=== PATIENT | male | born 1965 | race Caucasian/White ===

== ENCOUNTER 2021-04-08 08:01 | Outpatient (CLI) | payer BC, SELFPAY ==
--- NOTE | ~2021-04-08 | US_ITS ---
EXAMINATION: US abdomen complete DATE: 04/08/2021 09:24 INDICATION: Chronic idiopathic thrombocytopenic purpura TECHNIQUE: Multiple grayscale and Doppler ultrasound images of the abdomen were obtained. COMPARISON: 03/04/2010 FINDINGS: Bowel gas obscures visualization of the pancreas. The visualized portions of the pancreas a re unremarkable. The liver is normal with normal echogenicity and echotexture. No surface nodularity. Normal hepatopetal flow in the main portal vein. The gallbladder is normal with no abnormal wall thi ckening, pericholecystic fluid or stones. The normal common bile duct measures 5 mm. There was no son ographic Peck sign. The visualized portions of the aorta and inferior vena cava are normal. The right kidney measures 11.4 x 4.5 x 6.9 cm. The left kidney measures 11.8 x 6.2 x 6.2 cm. The kidn eys demonstrate normal parenchymal echogenicity. There is no hydronephrosis. The mildly enlarged sple en measures 14.1 cm. IMPRESSION: 1. Mild splenomegaly. Reviewed, dictated and finalized at location B. IMPRESSION: 1. Mild splenomegaly.
== END 2021-04-08 08:02 | disposition home or self-care (01) ==
LOC: ANHIMG 08:05
PROVIDERS: PCP Family Medicine; Visit Provider Internal Medicine Hematology & Oncology
DX: D69.3 Immune thrombocytopenic purpura (principal); R16.1 Splenomegaly, not elsewhere classified
CPT/HCPCS: 76700

== ENCOUNTER 2021-05-18 15:59 | Outpatient (CLI) | payer BC, SELFPAY ==
[2021-05-18 16:11] LABS: Hematocrit 43.6 % (42.0-52.0); Hemoglobin 15.3 g/dL (14.0-18.0); Mean Corpuscular HGB Conc 35.1 g/dl (32-36); Mean Corpuscular Hemoglobin 31.7 pg (26-34); Mean Corpuscular Volume 90.5 fl (80-100); Mean Platelet Volume 13.3 fl (7.4-10.4); Platelet Count Result 106 k/mm3 (150-375); Red Blood Count 4.82 M/mm3 (4.6-6.20); White Blood Count 7.1 K/mm3 (4.5-10.0)
[2021-05-18 16:45] LABS: D Dimer 0.27 ug/mL (<0.48)
== END 2021-05-18 16:00 | disposition home or self-care (01) ==
LOC: ANHLAB 16:02
PROVIDERS: PCP Family Medicine; Visit Provider Internal Medicine Hematology & Oncology
DX: D69.3 Immune thrombocytopenic purpura (principal); R07.9 Chest pain, unspecified
CPT/HCPCS: 36415; 85027; 85380

== ENCOUNTER 2021-06-08 15:09 | Outpatient (CLI) | payer BC, SELFPAY ==
[2021-06-08 15:26] LABS: Basophils Percent Auto 0.5 % (0.2-1.2); Eosinophils Absolute Auto 0.1 K/mm3 (0-0.3); Eosinophils Percent Auto 1.1 % (0-4.4); Hematocrit 43.9 % (42.0-52.0); Hemoglobin 15.2 g/dL (14.0-18.0); Immature Granulocyte Absolute 0.04 K/mm3 (0.00-0.031); Immature Granulocyte Percent A 0.6 % (0-0.5); Immature Platelet Fraction Pct 16.2 % (0.9-11.2); Lymphocytes Absolute Auto 1.66 K/mm3 (0.9-3.2); Lymphocytes Percent Auto 25.7 % (18.3-44.2); Mean Corpuscular HGB Conc 34.6 g/dl (32-36); Mean Corpuscular Hemoglobin 31.8 pg (26-34); Mean Corpuscular Volume 91.8 fl (80-100); Mean Platelet Volume 13.9 fl (7.4-10.4); Monocytes Absolute Auto 0.4 K/mm3 (0.1-0.6); Monocytes Percent Auto 6.5 % (2.6-8.5); Neutrophils Absolute Auto 4.3 K/mm3 (1.3-6.7); Neutrophils Percent Auto 65.6 % (45.5-73.1); Platelet Count Result 42 k/mm3 (150-375); Red Blood Count 4.78 M/mm3 (4.6-6.20); Red Cell Distribution Width 12.5 % (11.5-14.5); White Blood Count 6.5 K/mm3 (4.5-10.0)
[2021-06-08 15:27] LABS: Blood Urea Nitrogen 19 mg/dL (8-26); Carbon Dioxide 25 mmol/L (22-30); Chloride 102 mmol/L (98-109); Estimated Glomerular Filt Rate > 60; Glucose 154 mg/dL (70-105); Sodium 140 mmol/L (138-146)
[2021-06-08 16:45] LABS: Alanine Aminotransferase 29 U/L (4-50); Albumin Level 4.4 g/dL (3.5-5.1); Alkaline Phosphatase 62 U/L (38-126); Anion Gap 11 mmol/L (8-16); Aspartate Amino Transferase 28 U/L (17-59); Bilirubin,Total 0.7 mg/dL (0.2-1.3); Blood Urea Nitrogen 19 mg/dL (9-20); Calcium 9.2 mg/dL (8.4-10.2); Carbon Dioxide 24 mmol/L (22-30); Chloride 104 mmol/L (98-107); Estimated Glomerular Filt Rate > 60; Glucose 152 mg/dL (65-110); Potassium 4.1 mmol/L (3.4-5.0); Sodium 139 mmol/L (137-145)
[2021-06-08 17:23] LABS: D Dimer 0.27 ug/mL (<0.48)
== END 2021-06-08 15:10 | disposition home or self-care (01) ==
LOC: ANHLAB 15:11
PROVIDERS: PCP Family Medicine; Visit Provider Internal Medicine Hematology & Oncology
DX: R07.9 Chest pain, unspecified (principal); D69.3 Immune thrombocytopenic purpura
CPT/HCPCS: 36415; 80048; 80053; 85025; 85055; 85380

== ENCOUNTER 2021-09-09 15:29 | Outpatient (CLI) | payer BC, SELFPAY ==
[2021-09-09 15:47] LABS: Hematocrit 45.4 % (42.0-52.0); Hemoglobin 15.9 g/dL (14.0-18.0); Immature Platelet Fraction Pct 15.2 % (0.9-11.2); Mean Corpuscular Hemoglobin 31.6 pg (26-34); Mean Corpuscular Volume 90.3 fl (80-100); Mean Platelet Volume 13.2 fl (7.4-10.4); Platelet Count Result 58 k/mm3 (150-375); Red Blood Count 5.03 M/mm3 (4.6-6.20); White Blood Count 7.7 K/mm3 (4.5-10.0)
[2021-09-09 15:49] LABS: Blood Urea Nitrogen 16 mg/dL (8-26); Carbon Dioxide 26 mmol/L (22-30); Chloride 101 mmol/L (98-109); Estimated Glomerular Filt Rate > 60; Glucose 188 mg/dL (70-105); Sodium 141 mmol/L (138-146)
[2021-09-09 16:09] LABS: Alanine Aminotransferase 23 U/L (4-50); Albumin Level 4.6 g/dL (3.5-5.1); Alkaline Phosphatase 76 U/L (38-126); Anion Gap 9 mmol/L (8-16); Aspartate Amino Transferase 24 U/L (17-59); Bilirubin,Total 0.5 mg/dL (0.2-1.3); Blood Urea Nitrogen 16 mg/dL (9-20); Calcium 9.4 mg/dL (8.4-10.2); Carbon Dioxide 25 mmol/L (22-30); Chloride 101 mmol/L (98-107); Estimated Glomerular Filt Rate > 60; Glucose 185 mg/dL (65-110); Sodium 135 mmol/L (137-145)
== END 2021-09-09 15:30 | disposition home or self-care (01) ==
PROVIDERS: PCP Family Medicine; Visit Provider Internal Medicine Hematology & Oncology
DX: D69.3 Immune thrombocytopenic purpura (principal)
CPT/HCPCS: 36415; 80048; 80053; 85027; 85055

== ENCOUNTER 2022-03-10 15:46 | Outpatient (CLI) | payer BC, SELFPAY ==
[2022-03-10 16:01] LABS: Basophils Percent Auto 0.3 % (0.2-1.2); Eosinophils Absolute Auto 0.1 K/mm3 (0-0.3); Eosinophils Percent Auto 1.2 % (0-4.4); Hematocrit 40.7 % (42.0-52.0); Hemoglobin 14.2 g/dL (14.0-18.0); Immature Granulocyte Absolute 0.04 K/mm3 (0.00-0.031); Immature Granulocyte Percent A 0.6 % (0-0.5); Immature Platelet Fraction Pct 20.9 % (0.9-11.2); Lymphocytes Absolute Auto 1.84 K/mm3 (0.9-3.2); Lymphocytes Percent Auto 28.5 % (18.3-44.2); Mean Corpuscular HGB Conc 34.9 g/dl (32-36); Mean Corpuscular Hemoglobin 31.7 pg (26-34); Mean Corpuscular Volume 90.8 fl (80-100); Mean Platelet Volume 14.4 fl (7.4-10.4); Monocytes Absolute Auto 0.4 K/mm3 (0.1-0.6); Monocytes Percent Auto 6.8 % (2.6-8.5); Neutrophils Percent Auto 62.6 % (45.5-73.1); Platelet Count Result 48 k/mm3 (150-375); Red Blood Count 4.48 M/mm3 (4.6-6.20); Red Cell Distribution Width 11.9 % (11.5-14.5); White Blood Count 6.5 K/mm3 (4.5-10.0)
== END 2022-03-10 15:47 | disposition home or self-care (01) ==
LOC: ANHLAB 15:47
PROVIDERS: PCP Family Medicine; Visit Provider Internal Medicine Hematology & Oncology
DX: D69.3 Immune thrombocytopenic purpura (principal)
CPT/HCPCS: 36415; 85025; 85055

== ENCOUNTER 2022-09-08 15:09 | Outpatient (CLI) | payer BC, SELFPAY ==
[2022-09-08 15:24] LABS: Basophils Percent Auto 0.4 % (0.2-1.2); Eosinophils Absolute Auto 0.1 K/mm3 (0-0.3); Eosinophils Percent Auto 1.2 % (0-4.4); Hemoglobin 16.1 g/dL (14.0-18.0); Immature Granulocyte Absolute 0.04 K/mm3 (0.00-0.031); Immature Granulocyte Percent A 0.6 % (0-0.5); Immature Platelet Fraction Pct 16.9 % (0.9-11.2); Lymphocytes Absolute Auto 1.86 K/mm3 (0.9-3.2); Mean Corpuscular HGB Conc 35.8 g/dl (32-36); Mean Corpuscular Hemoglobin 32.9 pg (26-34); Mean Platelet Volume 13.6 fl (7.4-10.4); Monocytes Absolute Auto 0.4 K/mm3 (0.1-0.6); Monocytes Percent Auto 6.1 % (2.6-8.5); Neutrophils Absolute Auto 4.5 K/mm3 (1.3-6.7); Neutrophils Percent Auto 64.7 % (45.5-73.1); Platelet Count Result 66 k/mm3 (150-375); Red Blood Count 4.89 M/mm3 (4.6-6.20); White Blood Count 6.9 K/mm3 (4.5-10.0)
[2022-09-08 15:25] LABS: Blood Urea Nitrogen 12 mg/dL (8-26); Carbon Dioxide 27 mmol/L (22-30); Chloride 101 mmol/L (98-109); Estimated Glomerular Filt Rate > 60; Glucose 278 mg/dL (70-105); Ionized Calcium (POC) 1.19 mmol/L (1.11-1.31); Potassium 4.4 mmol/L (3.5-4.9); Sodium 141 mmol/L (138-146)
[2022-09-08 16:03] LABS: Alanine Aminotransferase 25 U/L (6-50); Albumin Level 4.5 g/dL (3.5-5.1); Alkaline Phosphatase 84 U/L (38-126); Anion Gap 9 mmol/L (8-16); Aspartate Amino Transferase 24 U/L (17-59); Bilirubin,Total 0.6 mg/dL (0.2-1.3); Blood Urea Nitrogen 13 mg/dL (9-20); Calcium 8.9 mg/dL (8.4-10.2); Carbon Dioxide 27 mmol/L (22-30); Chloride 104 mmol/L (98-107); Estimated Glomerular Filt Rate > 60; Glucose 273 mg/dL (65-110); Potassium 4.5 mmol/L (3.4-5.0); Sodium 140 mmol/L (137-145)
== END 2022-09-08 15:10 | disposition home or self-care (01) ==
LOC: ANHLAB 15:12
PROVIDERS: PCP Family Medicine; Visit Provider Internal Medicine Hematology & Oncology
DX: D69.3 Immune thrombocytopenic purpura (principal)
CPT/HCPCS: 36415; 80047; 80053; 85025; 85055

== ENCOUNTER 2023-07-11 15:00 | Outpatient (CLI) | payer BC, SELFPAY ==
[2023-07-11 15:14] LABS: Basophils Percent Auto 0.2 % (0.2-1.2); Eosinophils Absolute Auto 0.1 K/mm3 (0-0.3); Eosinophils Percent Auto 0.9 % (0-4.4); Hemoglobin 15.4 g/dL (14.0-18.0); Immature Granulocyte Absolute 0.04 K/mm3 (0.00-0.031); Immature Granulocyte Percent A 0.4 % (0-0.5); Immature Platelet Fraction Pct 18.7 % (0.9-11.2); Lymphocytes Absolute Auto 2.46 K/mm3 (0.9-3.2); Lymphocytes Percent Auto 27.6 % (18.3-44.2); Mean Corpuscular Hemoglobin 32.5 pg (26-34); Mean Corpuscular Volume 92.8 fl (80-100); Mean Platelet Volume 13.2 fl (7.4-10.4); Monocytes Absolute Auto 0.7 K/mm3 (0.1-0.6); Monocytes Percent Auto 7.3 % (2.6-8.5); Neutrophils Absolute Auto 5.7 K/mm3 (1.3-6.7); Neutrophils Percent Auto 63.6 % (45.5-73.1); Platelet Count Result 76 k/mm3 (150-375); Red Blood Count 4.74 M/mm3 (4.6-6.20); Red Cell Distribution Width 11.9 % (11.5-14.5); White Blood Count 8.9 K/mm3 (4.5-10.0)
[2023-07-11 15:15] LABS: Blood Urea Nitrogen 19 mg/dL (8-26); Carbon Dioxide 22 mmol/L (22-30); Chloride 105 mmol/L (98-109); Estimated Glomerular Filt Rate > 60; Glucose 132 mg/dL (70-105); Ionized Calcium (POC) 1.24 mmol/L (1.11-1.31); Potassium 4.4 mmol/L (3.5-4.9); Sodium 141 mmol/L (138-146)
== END 2023-07-11 15:01 | disposition home or self-care (01) ==
LOC: ANHLAB 15:01
PROVIDERS: PCP Family Medicine; Visit Provider Internal Medicine Hematology & Oncology
DX: D69.3 Immune thrombocytopenic purpura (principal)
CPT/HCPCS: 36415; 80047; 85025; 85055

== ENCOUNTER → 2023-11-20 10:42 | Outpatient (CLI) | payer BC, SELFPAY ==
--- NOTE | ~2023-11-20 | XR_ITS ---
EXAMINATION: XR chest 2V DATE: 11/20/2023 11:03 INDICATION: Cough, unspecified. TECHNIQUE: Frontal and lateral views of the chest were obtained. COMPARISON: Chest single view 01/23/2019, CT abdomen and pelvis 10/08/2016 FINDINGS: There is no pneumonia, pleural effusion, or pneumothorax. The heart size is normal. Median sternotomy wires and mediastinal surgical clips are seen, likely from prior coronary artery bypass gr afting. IMPRESSION: 1. No acute cardiopulmonary disease. Reviewed, dictated and finalized at location A. K BONER
== END ==
PROVIDERS: PCP Family Medicine; Visit Provider Family Medicine
DX: R05.9 Cough, unspecified (principal)
CPT/HCPCS: 71046

== ENCOUNTER 2024-06-25 15:11 | Outpatient (CLI) | payer BC, SELFPAY ==
--- NOTE | 2024-06-25 15:19 | ECG_ITS ---
Test Date: 2024-06-25 15:27:47 Measurements Intervals [place] Rate: 71 P: 28 ND: 160 QRS: 56 QRSD: 101 T: 80 QT: 339 QTc: 369 Interpretive Statements SINUS RHYTHM BORDERLINE R WAVE PROGRESSION, ANTERIOR LEADS CONSIDER INFERIOR INFARCT, AGE INDETERMINATE NONSPECIFIC T-WAVE ABNORMALITY- HIGH LATERAL LEADS BASELINE ARTIFACT- I, II, III, AVR, AVL, AVF ABNORMAL ECG No previous ECG available for comparison Electronically Signed On 06-25-2024 15:48:13 CDT by Tom Mao D.O.
[2024-06-25 15:53] LABS: Anion Gap 11 mmol/L (4-12); Blood Urea Nitrogen 14 mg/dL (9-20); Calcium 9.1 mg/dL (8.4-10.2); Carbon Dioxide 26 mmol/L (22-30); Chloride 101 mmol/L (98-107); Estimated Glomerular Filt Rate > 60; Glucose 165 mg/dL (65-110); Potassium 3.9 mmol/L (3.4-5.0); Sodium 138 mmol/L (137-145)
== END 2024-06-25 15:12 | disposition home or self-care (01) ==
LOC: ANHSURGERY 15:14
PROVIDERS: Anesthesiology; PCP Family Medicine; Visit Provider Otolaryngology
DX: I25.2 Old myocardial infarction (principal); E11.9 Type 2 diabetes mellitus without complications; R94.31 Abnormal electrocardiogram [ECG] [EKG]
CPT/HCPCS: 36415; 80048; 93005

== ENCOUNTER 2024-07-01 02:49 | Day surgery (SDC) | payer BC, SELFPAY ==
[2024-06-25 10:22] VITALS: BMI 27.3
--- NOTE | 2024-06-25 10:30 | PC.NURSE ---
Report to the Outpatient Waiting Room, entrance under the green pavilion located off [facility], at time _0630_ on date _[id number]_. Planned Procedure Time: _0830_.? Time changes happen often and if your time is changed the preop area will call you the afternoon before. - You and your visitor will be asked to self-screen and do not enter if you have any COVID symptoms. Please call surgeon if you need to reschedule. - A mask is optional within the hospital at this time. Patients may have clear liquids (water, carbonated beverages, clear teas, apple juice) until 3 hours prior to surgery with a maximum of 20 ounces. - No food from midnight until time of surgery and no smoking Take only the following medications with a SIP of water on the morning of surgery: ___Isosorbide, Metorpolol and Ranexa DO NOT STOP ANY OF YOUR OTHER PRESCRIPTION MEDICATIONS PRIOR TO SURGERY EXCEPT THE FOLLOWING Medications to discontinue per physician None Please no make-up, nail turkish, hairspray, perfume, deodorant, or body powder the day of surgery.? No jewelry (including any body piercings) or valuables the day of surgery, leave them at home.? Please take a shower or bath the night before, or the morning of, surgery with an antibacterial soap.? Wear comfortable, loose fitting clothing.? - Jewelry must be removed prior to entering the operating room.? Rings and piercings that are not removed may be cut off. - The hospital will not accept responsibility for valuables.? - Please leave all valuables, including medications, at home the day of surgery. If you are going home after surgery, a licensed distribution driver must drive you home.? - NO public transportation without another adult if you receive anesthesia. - We recommend that an adult stay with you for 24 hours following discharge. - We also recommend that you do not drive, make important decision, drink alcoholic beverages, or take any drugs that were not prescribed by your health care provider for at least 24 hours after your discharge time. Follow any additional instructions given to you from your surgeon. Telephone instructions given to __Ed__and asked if any additional questions and then verbalized understanding. Patient advised to call surgeon office or pre surgery nurse liaison [phone] if any additional questions.
[2024-07-01] VITALS (9 sets, daily range): BP systolic 118–131; BP diastolic 70–80; PULSE 70–81; RESP 14–20; TEMP 36.3–36.6; O2SAT 96–100
[2024-07-01] MEDS: LACTATED RINGERS 1,000 ML 30 ML IV CONT ×2 (07:00→09:27)
[2024-07-01] MEDS: ACETAMINOPHEN 500 MG TABLET 1000 MG PO (07:00)
--- NOTE | 2024-07-01 07:07 | WPDHPUPDATE1 ---
History and Physical Update Update Date/Time: 07/01/24 07:07 History and Physical has been reviewed, including an updated exam of the patient. There are NO changes in the patient's condition. Risks, benefits, and alternatives have been discussed and questions answered. Patient agrees to proceed with procedure.
[2024-07-01 07:14] LABS: Glucose Point of Care 144 mg/dl (65-105)
[2024-07-01] MEDS: OXYMETAZOLINE HCL 0.05% NAS 15 ML BTL (*BKC) 1 SPRAY NASAL (07:15)
--- NOTE | 2024-07-01 07:28 | WPDANESEPPF ---
Anes - Initial Pre Proc Eval Procedure: Operation Date: 07/01/24 08:30 Proposed Procedures p Bilateral Turbinate Reduction, Left Nasal Valve Repair - Colt Rossi MD s Septoplasty - Colt Rossi MD Date/Time: 07/01/24 07:28 Surgeon: Colt Rossi MD Pre Op Diagnosis: deviated septum, nasal valve collapse Patient Data Age: 59 Gender: M Height: 1.78 m Weight: 88.6 kg Last Vital Signs Temp 36.3 C L 07/01/24 06:54 Pulse 81 07/01/24 06:54 Resp 18 07/01/24 06:54 BP 118/79 07/01/24 06:54 Pulse Ox 97 07/01/24 06:54 O2 Del Method Room Air 07/01/24 06:54 Allergies Allergy/AdvReac Type Severity Reaction Status Date / Time No Known Allergies Allergy Verified 06/25/24 10:20 Home Medications Medication Instructions Recorded Confirmed Type aspirin 81 mg tablet,delayed 81 mg PO DAILY 11/06/19 06/25/24 History release isosorbide mononitrate 30 mg 30 mg PO DAILY 11/06/19 06/25/24 History tablet,extended release 24 hr metoprolol tartrate 50 mg tablet 50 mg PO Q12H 11/06/19 06/25/24 History ranolazine 1,000 mg 1,000 mg PO Q12H 11/06/19 06/25/24 History tablet,extended release,12 hr (Ranexa) rosuvastatin 40 mg tablet (Crestor) 40 mg PO DAILY 11/06/19 06/25/24 History semaglutide 1 mg/dose (4 mg/3 mL) See Rx Instructions .Route 08/25/23 06/25/24 Rx subcutaneous pen injector (Ozempic) .COMPLEX #3 mL metformin 500 mg tablet,extended 2,000 mg PO DAILY #360 tabs 12/11/23 06/25/24 Rx release 24 hr dapagliflozin propanediol 10 mg See Rx Instructions .Route 02/27/24 06/25/24 Rx tablet (Farxiga) .COMPLEX #30 tabs Laboratory Tests 07/01/24 07:12 POC Capillary Glucose 144 H mg/dl (65-105) Patient hx anesthesia problems: none Family hx anesthesia problems: none Results Review: All pre-operative results and documents have been reviewed as part of the pre-operative evaluation. [facility] Past Medical History Medical History Long-term insulin use Surgical History Surgical History S/P CABG (coronary artery bypass graft) S/P coronary artery stent placement Family History Family History Mother Patient's mother is in good health Father Family history of arthritis Hypertension Social History Social History Social History: Smoking packs per day: 1 Smoking cigarettes per day: 20.0 Years smoked: 38 Smoking pack-years: 38.00 Smoking status: Former smoker Tobacco type: cigarettes Second hand tobacco smoke exposure: No Smoking end date: 06/25/16 Alcohol intake: current Alcohol use details: pt states that he drinks alcohol 3 times a month Substance use: never Substance use type: does not use Do You Feel Safe in your Home?: Yes Lack of Transportation: No Lack of Food: Never True Current Housing: I Have Housing Concerned About Future Housing: No Difficulty Paying Gas/Electric Bills: No Difficulty Paying for Meds: No Currently Unemployed: No Education: Don't Know Difficulty w/ Childcare or Family Care: No Living arrangements: with family Occupation/Education: occupation Gender identity (if verbalized by the patient): Male Sexual Orientation (if Verbalized by the Patient): Straight or Heterosexual Spiritual care concerns: No Anes - Eval Final PreProcedure Day of Procedure 07/01/24 07:28 Patient weight: overweight Heart: regular rate and rhythm Lungs: clear to auscultation Airway: Mallampati scale class II Neurological: alert and oriented Last oral intake: >/= 8 hours ASA classification: III Emergent: no Anesthetic plan: proceed Anesthesia type and monitoring: general ETT and standard monitoring Other findings: h/o thrombocytopenia check platelet count prio
[2024-07-01 07:42] LABS: Immature Platelet Fraction Pct 14.9 % (0.9-11.2); Mean Platelet Volume 13.4 fl (7.4-10.4); Platelet Count Result 65 k/mm3 (150-375)
--- NOTE | 2024-07-01 07:52 | W.PM.PROC2 ---
Procedure Note - Detailed Date of Procedure 07/01/24 Pre-op Diagnosis deviated septum, nasal valve collapse Post-op Diagnosis Same Procedure Performed Septoplasty, turbinoplasty,left nasal valve repair via alar medardo graft Surgeon Colt Rossi MD Anesthesia General Indications deviated septum Findings doyles. broad right deviation, low left inferior deviation. left alar medardo graft from septal cartilage Description of Procedure After obtaining informed consent and proper site verification the patient was brought to the operating room and placed on the operating table in the supine position. They were placed under general endotracheal anesthesia by the anesthesia provider. The patient was then draped in standard fashion for septoplasty and turbinoplasty. A timeout was performed and the correct patient and procedure were verified. The nasal cavity was injected with 1% lidocaine with 1-100,000 epinephrine and packed with afrin-soaked cottonoid pledgets. Attention was then directed to the nasal septum. A hemitransfixion incision was made in the left caudal septum and a mucoperichondrial flap was elevated in the usual fashion. The flap was elevated under endoscopic visualization and the remainder of the case was performed with endoscopic assistance. Using a D-knife, an incision was made through the cartilaginous septum with care to preserve the appropriate caudal and dorsal ?L-strut? of cartilage. The cartilage was then disarticulated from the bony-cartilaginous junction and the deviated cartilage was removed. Further deviated bone and cartilage was removed from the maxillary crest and posterior bony septum with care to avoid injury to the mucoperichondrial flap using a combination of dissection and Marciano-Frazier forceps. Once this was completed, the hemitransfixion incision was closed using simple interrupted 4-0 chromic suture. A quilting stitch to reapproximate the mucoperichondrial flaps was then placed using 4-0 plain gut suture on a Andrés needle.? The cartilage was set aside and saved for later grafting. Next attention was directed to the turbinates. Using a 0? telescope and 2mm turbinate blade microdebrider, a stab incision was made in the anterior face of the turbinate and dissection was carried posterior to perform submucosal resection. Next the turbinate was outfractured using a blunt instrument. A similar procedure was then performed on the right-hand side without difficulty. The previously harvested septal cartilage was then carved into one appropriately sized alar medardo graft.? Marginal incisions was made on the left through the vestibular nasal skin.? Using curved iris scissors, a pocket was dissected laterally along the lower lateral crura out to the piriform aperture for placement of the graft.? The graft was then placed into the dissected pocket on the left.? Once secure, the incision was closed with 4-0 chromic suture. Mckoy splints covered in mupirocin ointment were placed in the nasal cavity and secured to the membranous septum using a 2-0 nylon suture. The patient was awakened from general anesthesia extubated in the operating room, and transported to the recovery room in stable condition without complication. Estimated Blood Loss 10 Drains No Packing Yes (mckoy splints) Pathology None sent Complications No immediate complications Condition Stable Disposition PACU
[2024-07-01] MEDS: ceFAZolin 2 GM/D5W 50 ML 2 GM/50 ML BAG IVPB (08:09)
[2024-07-01] MEDS: LIDO 1%/EPINEPHRINE 1:100,000 50 ML VIAL INFILTRATE (08:25)
[2024-07-01] MEDS: MUPIROCIN 2% OINT 22 GM TUBE 1 APPLIC TOPICAL (09:13)
[2024-07-01 09:34] LABS: Glucose Point of Care 120 mg/dl (65-105)
[2024-07-01] MEDS: oxyCODONE HCL (*CRX) 5 MG TAB IR PO (10:54)
== END 2024-07-01 11:23 | disposition home or self-care (01) ==
PROVIDERS: Anesthesiology; PCP Family Medicine; Visit Provider Otolaryngology
PROC: (CPT 30465; principal; 2024-07-01 08:30)
PROC: (CPT 30520; 2024-07-01 08:30)
DX: M95.0 Acquired deformity of nose (principal); J34.2 Deviated nasal septum; Z95.1 Presence of aortocoronary bypass graft; Z95.5 Presence of coronary angioplasty implant and graft; Z79.82 Long term (current) use of aspirin; Z79.85 Long-term (current) use of injectable non-insulin antidiabetic drugs; Z79.84 Long term (current) use of oral hypoglycemic drugs; Z87.891 Personal history of nicotine dependence
CPT/HCPCS: 30465; 30140; 36415; 82948; 85049; 85055; A9270; J0690; J1100; J2250; J2371; J2405; J2704; J3010; J7120

== ENCOUNTER 2024-07-11 15:06 | Outpatient (CLI) | payer BC, SELFPAY ==
[2024-07-11 15:24] LABS: Basophils Absolute Auto 0.1 K/mm3 (0.0-0.1); Basophils Percent Auto 0.4 % (0.2-1.2); Eosinophils Absolute Auto 0.1 K/mm3 (0-0.3); Eosinophils Percent Auto 1.1 % (0-4.4); Hematocrit 42.4 % (42.0-52.0); Hemoglobin 14.4 g/dL (14.0-18.0); Immature Granulocyte Absolute 0.15 K/mm3 (0.00-0.031); Immature Granulocyte Percent A 1.3 % (0-0.5); Lymphocytes Absolute Auto 2.19 K/mm3 (0.9-3.2); Lymphocytes Percent Auto 18.7 % (18.3-44.2); Mean Corpuscular Hemoglobin 32.2 pg (26-34); Mean Corpuscular Volume 94.9 fl (80-100); Mean Platelet Volume 12.5 fl (7.4-10.4); Monocytes Percent Auto 8.9 % (2.6-8.5); Neutrophils Absolute Auto 8.1 K/mm3 (1.3-6.7); Neutrophils Percent Auto 69.6 % (45.5-73.1); Platelet Count Result 164 k/mm3 (150-375); Red Blood Count 4.47 M/mm3 (4.6-6.20); Red Cell Distribution Width 11.9 % (11.5-14.5); White Blood Count 11.7 K/mm3 (4.5-10.0)
== END 2024-07-11 15:07 | disposition home or self-care (01) ==
LOC: ANHLAB 15:08
PROVIDERS: PCP Family Medicine; Visit Provider Internal Medicine Hematology & Oncology
DX: D69.3 Immune thrombocytopenic purpura (principal)
CPT/HCPCS: 36415; 85025

== ENCOUNTER 2024-08-01 15:11 | Outpatient (CLI) | payer BC, SELFPAY ==
[2024-08-01 15:30] LABS: Hematocrit 45.1 % (42.0-52.0); Hemoglobin 15.2 g/dL (14.0-18.0); Immature Platelet Fraction Pct 19.8 % (0.9-11.2); Mean Corpuscular HGB Conc 33.7 g/dl (32-36); Mean Corpuscular Hemoglobin 32.1 pg (26-34); Mean Corpuscular Volume 95.1 fl (80-100); Mean Platelet Volume 14.3 fl (7.4-10.4); Platelet Count Result 57 k/mm3 (150-375); Red Blood Count 4.74 M/mm3 (4.6-6.20); Red Cell Distribution Width 12.5 % (11.5-14.5); White Blood Count 6.7 K/mm3 (4.5-10.0)
== END 2024-08-01 15:12 | disposition home or self-care (01) ==
LOC: ANHLAB 15:12
PROVIDERS: PCP Family Medicine; Visit Provider Internal Medicine Hematology & Oncology
DX: D69.3 Immune thrombocytopenic purpura (principal)
CPT/HCPCS: 36415; 85027; 85055

== ENCOUNTER 2024-10-18 01:17 | Day surgery (SDC) | payer BC, SELFPAY ==
[2024-10-01 09:15] VITALS: BMI 27.2
[2024-10-18 08:20] VITALS: BP 116/82; PULSE 85; RESP 16; TEMP 36.3; O2SAT 98
[2024-10-18] MEDS: LACTATED RINGERS 1,000 ML 150 ML IV CONT (08:30)
[2024-10-18 08:33] LABS: Glucose Point of Care 139 mg/dl (65-105)
--- NOTE | 2024-10-18 09:27 | PM.IMHP ---
H&P: HPI History of Present Illness Date/Time: 10/18/24 09:27 Chief Complaint: Screening colonoscopy Narrative: This is the patient's 2nd colonoscopy. There are no GI symptoms and there is no family history of colorectal cancer. Review of Systems Review of Systems: All systems reviewed & are unremarkable except as noted in HPI and below PMFSH Past Medical History Medical History Long-term insulin use Surgical History Surgical History S/P CABG (coronary artery bypass graft) S/P coronary artery stent placement Family History Family History Mother Patient's mother is in good health Father Family history of arthritis Hypertension Social History Social History Social History: Smoking packs per day: 1 Smoking cigarettes per day: 20.0 Years smoked: 35 Smoking pack-years: 35.00 Smoking status: Former smoker Tobacco type: cigarettes Second hand tobacco smoke exposure: No Smoking end date: 06/25/16 Alcohol intake: never Alcohol use details: pt states that he drinks alcohol 3 times a month Substance use: never Substance use type: does not use Do You Feel Safe in your Home?: Yes Lack of Transportation: No Lack of Food: Never True Current Housing: I Have Housing Concerned About Future Housing: No Difficulty Paying Gas/Electric Bills: No Difficulty Paying for Meds: No Currently Unemployed: No Education: Don't Know Difficulty w/ Childcare or Family Care: No Living arrangements: with family Occupation/Education: occupation Gender identity (if verbalized by the patient): Male Sexual Orientation (if Verbalized by the Patient): Straight or Heterosexual Spiritual care concerns: No Meds Home Medications and Allergies Home Medications ?Medication ?Instructions ?Recorded ?Confirmed ?Type aspirin 81 mg tablet,delayed 81 mg PO DAILY 11/06/19 10/18/24 History release isosorbide mononitrate 30 mg 30 mg PO DAILY 11/06/19 10/18/24 History tablet,extended release 24 hr metoprolol tartrate 50 mg tablet 50 mg PO Q12H 11/06/19 10/18/24 History ranolazine 1,000 mg 1,000 mg PO Q12H 11/06/19 10/18/24 History tablet,extended release,12 hr (Ranexa) rosuvastatin 40 mg tablet (Crestor) 40 mg PO DAILY 11/06/19 10/18/24 History semaglutide 1 mg/dose (4 mg/3 mL) See Rx Instructions .Route 07/08/24 10/18/24 Rx subcutaneous pen injector (Ozempic) .COMPLEX #3 mL metformin 500 mg tablet,extended 2,000 mg (4 x 500 mg) PO DAILY 07/11/24 10/18/24 Rx release 24 hr #360 tabs dapagliflozin propanediol 10 mg See Rx Instructions .Route 09/09/24 10/18/24 Rx tablet (Farxiga) .COMPLEX #30 tabs Allergies Allergy/AdvReac Type Severity Reaction Status Date / Time No Known Allergies Allergy Verified 10/01/24 09:30 Vital Signs Vital Signs - 24 hr 10/18/24 08:20 Temperature 97.3 F L Pulse Rate 85 Respiratory Rate 16 Blood Pressure 116/82 Pulse Oximetry 98 Oxygen Delivery Room Air Exam Const: General: cooperative and healthy appearing Resp: Effort & Inspection: normal respiratory effort and able to speak in complete sentences Auscultation: clear to auscultation bilaterally Cardio: Rate: regular rate Rhythm: regular rhythm GI: Inspection: normal to inspection GI Palp: No No hepatosplenomegaly present Auscultation: normal bowel sounds Rectal Exam: deferred Skin: General skin exam: normal color Psych: Appearance: grossly normal Mental Status: mental status grossly normal Assessment and Plan Assessment and plan (1) Encounter for screening colonoscopy: Code(s): Z12.11 - Encounter for screening for malignant neoplasm of colon Status: Acute Assessment and Plan: The patient is deemed a good candidate for the procedure. Consent signed. Will proceed.
--- NOTE | 2024-10-18 09:32 | WPDANESEPPF ---
Anes - Initial Pre Proc Eval Procedure: Operation Date: 10/18/24 09:30 Proposed Procedures p Screening Colonoscopy - Nathaniel Clark MD Date/Time: 10/18/24 09:32 Surgeon: Nathaniel Clark MD Pre Op Diagnosis: screening colon Patient Data Age: 59 Gender: M Height: 1.78 m Weight: 86.4 kg Last Vital Signs Temp 97.3 F L 10/18/24 08:20 Pulse 85 10/18/24 08:20 Resp 16 10/18/24 08:20 BP 116/82 10/18/24 08:20 Pulse Ox 98 10/18/24 08:20 O2 Del Method Room Air 10/18/24 08:20 Allergies Allergy/AdvReac Type Severity Reaction Status Date / Time No Known Allergies Allergy Verified 10/01/24 09:30 Home Medications ?Medication ?Instructions ?Recorded ?Confirmed ?Type aspirin 81 mg tablet,delayed 81 mg PO DAILY 11/06/19 10/18/24 History release isosorbide mononitrate 30 mg 30 mg PO DAILY 11/06/19 10/18/24 History tablet,extended release 24 hr metoprolol tartrate 50 mg tablet 50 mg PO Q12H 11/06/19 10/18/24 History ranolazine 1,000 mg 1,000 mg PO Q12H 11/06/19 10/18/24 History tablet,extended release,12 hr (Ranexa) rosuvastatin 40 mg tablet (Crestor) 40 mg PO DAILY 11/06/19 10/18/24 History semaglutide 1 mg/dose (4 mg/3 mL) See Rx Instructions .Route 07/08/24 10/18/24 Rx subcutaneous pen injector (Ozempic) .COMPLEX #3 mL metformin 500 mg tablet,extended 2,000 mg (4 x 500 mg) PO DAILY 07/11/24 10/18/24 Rx release 24 hr #360 tabs dapagliflozin propanediol 10 mg See Rx Instructions .Route 09/09/24 10/18/24 Rx tablet (Farxiga) .COMPLEX #30 tabs Laboratory Tests 10/18/24 08:29 POC Capillary Glucose 139 H mg/dl (65-105) Patient hx anesthesia problems: none Family hx anesthesia problems: none Results Review: All pre-operative results and documents have been reviewed as part of the pre-operative evaluation. [facility] Past Medical History Medical History Long-term insulin use Surgical History Surgical History S/P CABG (coronary artery bypass graft) S/P coronary artery stent placement Family History Family History Mother Patient's mother is in good health Father Family history of arthritis Hypertension Social History Social History Social History: Smoking packs per day: 1 Smoking cigarettes per day: 20.0 Years smoked: 35 Smoking pack-years: 35.00 Smoking status: Former smoker Tobacco type: cigarettes Second hand tobacco smoke exposure: No Smoking end date: 06/25/16 Alcohol intake: never Alcohol use details: pt states that he drinks alcohol 3 times a month Substance use: never Substance use type: does not use Do You Feel Safe in your Home?: Yes Lack of Transportation: No Lack of Food: Never True Current Housing: I Have Housing Concerned About Future Housing: No Difficulty Paying Gas/Electric Bills: No Difficulty Paying for Meds: No Currently Unemployed: No Education: Don't Know Difficulty w/ Childcare or Family Care: No Living arrangements: with family Occupation/Education: occupation Gender identity (if verbalized by the patient): Male Sexual Orientation (if Verbalized by the Patient): Straight or Heterosexual Spiritual care concerns: No Anes - Eval Final PreProcedure Day of Procedure 10/18/24 09:32 Patient weight: normal Heart: regular rate and rhythm Lungs: clear to auscultation Airway: Mallampati scale class II Neurological: alert and oriented Last oral intake: >/= 8 hours ASA classification: III Emergent: no Anesthetic plan: proceed Anesthesia type and monitoring: general GIVS and standard monitoring Results Review: All pre-operative results and documents have been reviewed as part of the pre-operative evaluation. Informed Consent: The patient's anesthetic plan and its attendant risks and benefits were discussed with the patient/family/POA. Questions were solicited and answers provided to the satisfaction of the patient/family/POA.
[2024-10-18 09:57] VITALS: BP 84/57; PULSE 75; RESP 16; O2SAT 97
[2024-10-18 10:07] VITALS: BP 102/74; PULSE 75; RESP 16; O2SAT 98
[2024-10-18 10:17] VITALS: BP 112/78; PULSE 74; RESP 16; O2SAT 97
== END 2024-10-18 10:52 | disposition home or self-care (01) ==
PROVIDERS: PCP Family Medicine; Referring Provider Physician Assistant; Visit Provider Internal Medicine Gastroenterology
PROC: 0DJD8ZZ Inspection of Lower Intestinal Tract, Via Natural or Artificial Opening Endoscopic (ICD-10-PCS; CPT 45378; principal; 2024-10-18 09:30)
DX: Z12.11 Encounter for screening for malignant neoplasm of colon (principal); D12.2 Benign neoplasm of ascending colon; K64.8 Other hemorrhoids; Z79.82 Long term (current) use of aspirin; Z79.85 Long-term (current) use of injectable non-insulin antidiabetic drugs; Z79.84 Long term (current) use of oral hypoglycemic drugs; Z79.4 Long term (current) use of insulin; Z98.890 Other specified postprocedural states; Z95.1 Presence of aortocoronary bypass graft; Z95.5 Presence of coronary angioplasty implant and graft; Z87.891 Personal history of nicotine dependence
CPT/HCPCS: 45380; 82948; 88305; J2003; J2704; J7120

== ENCOUNTER 2024-11-21 11:35 | Outpatient (CLI) | payer BC, SELFPAY ==
--- NOTE | ~2024-11-21 | XR_ITS ---
EXAMINATION: XR chest 2V DATE: 11/21/2024 15:09 INDICATION: Smoker. Polyp of colon. Preop. TECHNIQUE: Frontal and lateral views of the chest were obtained on 3 radiographs. COMPARISON: Chest 2 views 11/20/2023 FINDINGS: There is no pneumonia, pleural effusion, or pneumothorax. The heart size is normal. Median sternotomy wires and mediastinal surgical clips are seen, likely from prior coronary artery bypass gr afting. IMPRESSION: 1. No acute cardiopulmonary disease. Reviewed, dictated and finalized at location A. GER MACHINE OPERATOR
--- OUTSIDE RECORDS SUMMARY | 2024-11-21 11:38 | XMS_ITS | Clinical Summary ---
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 Name Role Phone Unavailable Primary Care Provider Unavailabl e Social History Tobacco Use Types Packs/Day Years Used Date Smoking Tobacco: Never Assessed Sex and Gender Information Value Date Recorded Sex Assigned at Not on file Legal Sex Male 7:17 PM CDT Gender Identity Not on file Sexual Orientation Not on file Last Filed Vital Signs Vital Sign Reading Time Taken Comments Blood Pressure 146/93 04/02/2013 9:19 AM CDT Pulse 96 04/02/2013 9:19 AM CDT Temperature - - Respiratory Rate - - Oxygen Saturation - - Inhaled Oxygen Concentration - - Weight 98.4 kg (217 lb) 04/02/2013 9:19 AM CDT Height 177.8 cm (5' 10 ) 08/24/2012 10:18 AM QUAHOGGER Body Mass Index 31.14 08/24/2012 10:18 AM QUAHOGGER Plan of Treatment Health Maintenance Due Date Last Done Comments Colorectal Cancer Screening Colonoscopy (10 Years) 1964 Annual Physical 1967 Hepatitis C 1982 DTaP, Tdap and Td Vaccines ( 1 - Tdap) 1983 Zoster Vaccines (1 of 2) 2014 COVID-19 Vaccine ( - 2023-2 5 season) 2024 Influenza Adult (#1) 2024 RSV Immunization or 60+ Years (1 - 1-dose 75+ series) 2039 Meningococcal B Vaccine Aged Out No l onger eligible based on patient's age to complete this topic Meningococcal Vaccine Aged Out No good jenny eligible based on patient's age to complete this topic Pneumococcal Vaccine: Pediat rics (0 to 5 Years) and At-Risk Patients (6 to 64 Years) Aged Out No longer eligible b ased on patient's age to complete this topic RSV Immunizations Under 20 Months Aged Out No longer eligible based on patient's age to complete this topic
--- OUTSIDE RECORDS SUMMARY | 2024-11-21 11:38 | XMS_ITS | Encounter Summary ---
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 Name Role Phone Unavailable Primary Care Provider Unavailabl e Encounter Details Date Type Department Care Team (Latest Contact Info) Description 08/14/2018 Abstract [facility] , Meggan Bradley MD Social History Tobacco Use Types Packs/Day Years Used Date Smoking Tobacco: Never Assessed Sex and Gender Information Value Date Recorded Sex Assigned at Not on file Legal Sex Male 7:17 PM CDT Gender Identity Not on file Sexual Orientation Not on file documented as of this encounter Plan of Treatment Not on file documented as of this encounter Visit Diagnoses Not on filedocumented in this encounter
--- OUTSIDE RECORDS SUMMARY | 2024-11-21 11:38 | XMS_ITS | Clinical Summary ---
Author Organization [facility] Address [address] [place] [address] Care Team Providers Care [id number]/M60 Tank Driver Name Role Phone Wilfrido Ryan MD Primary Care Provider [phone] Allergies Active Allergy Reactions Criticality Noted Date Comments Androgenic Anabolic Steroid Blood Disorder Medium 03/09 High blood sugar Medications aspirin (ECOTRIN EC) 81 mg Tablet, Delayed Release (E.C.) Take 81 mg by mouth daily. Active metFORMIN (GLUCOPHAGE XR) 500 mg Extended Release 24 hour tablet Take 500 mg by mouth daily. 4 x day Active isosorbide mononitrate (IMDUR) 30 mg Extended Release 24 hour tablet Take 30 mg by mouth daily in the morning. Active dapagliflozin (Farxiga) 10 mg Tablet Take by mouth daily. Active metoprolol tartrate (LOPRESSOR) 100 mg tablet Take 100 mg by mouth 2 times daily. Active ranolazine (RANEXA) 1,000 mg Extended Release 12 hour tablet Take 1,000 mg by mouth every 12 hours. Active Arginine HCl, L-Arginine, 1,000 mg Tablet Take by mouth. 3 x day Active glucosam-chond- hyalu-CF borate (Move Free FreshT) 750 mg-100 mg- 1.65 mg-108 mg Tablet Take by mouth. 2 x day Active rosuvastatin (CRESTOR) 40 mg tablet 2 Active semaglutide (Ozempic) 0.25 mg or 0.5 mg(2 mg/1.5 mL) Pen Injector Inject 1 mg by subcutaneous injection every 7 days. Active Active Problems Problem Noted Date Diagnosed Date Type 2 diabetes mellitus 03/18/2021 Hypertension 03/18/2021 High cholesterol 03/18/2021 Heart attack 03/18/2021 Chronic idiopathic thrombocytopenic purpura 03/09 Encounters Date Type Department Care Team Description 11/05/2024 External Device Data STL ABSTRACTION Provider, Abstract 10/15/2024 External Device Data ST[facility] ABSTRACTION Provider, Abstract from Last 3 Months Social History Tobacco Use Types Packs/Day Years Used Date Smoking Tobacco: Former Tobacco Cessation:Counseling Given: Not Answered Alcohol Use Standard Drinks/Week Comments Yes 0 (1 standard drink = 0.6 oz pure alcohol) a couple of drinks per month maximum Sex and Gender Information Value Date Recorded Sex Assigned at Not on file Legal Sex Male 2:10 PM CDT Gender Identity Not on file Sexual Orientation Not on file 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 on file Not on file Last Filed Vital Signs Vital Sign Reading Time Taken Comments Blood Pressure 117/78 08/01/2024 3:29 PM CDT Pulse 76 08/01/2024 3:29 PM CDT Temperature 36.6 C (97.8 F) 08/01/2024 3:29 PM CDT Respiratory Rate 18 07/11/2024 3:40 PM CDT Oxygen Saturation 93% 08/01/2024 3:29 PM CDT Inhaled Oxygen Concentration - - Weight 87.2 kg (192 lb 3.2 oz) 08/01/2024 3:29 P M CDT Height 177.8 cm (5' 10 ) 03/10/2022 3:59 PM CDT Body Mass Index 27.58 03/10/2022 3:59 PM CDT Plan of Treatment Upcoming Encounters Date Type Department Care Team (Late st Contact Info) Description 08/01/2025 8:30 AM CDT Office Visit [facility] Oncology and Hematology - [place] [address] [place] [address] Huan Perez MD [address] [place] [address] Health Maintenance Due Date Last Done Comments PNEUMOCOCCAL VACCINE 0-64 YE ARS (1 of 2 - PCV) 1970 DIABETES ANNUAL FOOT EXAM 1982 DIABETES ANNUAL RETINAL EXAM 1982 DIABETES MICROALBUMIN ANNUAL SCREEN 1982 LDL CHOLESTEROL ANNUAL 1982 DTAP/TDAP/TD VACCINES (1 - Tdap) 1983 COLORECTAL SCREENING 2009 Colorectal Cancer Screening 2009 FIT-DNA Q 3 years 2009 FIT/FOBT Q 1 year 2009 Flex Sig/CT Colonography Q 5 years 2009 DIABETES HBA1C Q 6 MONTHS 10/02/2013 04/02/2013 ZOSTER VACCINE (1 of 2) 2014 INFLUENZA VACCINE (#1) 2024 RSV VACCINE (60+ or ) (1 - Risk 60-74 years 1-dose series) 2024 Abdominal Aortic Aneurysm (A AA) Screening Completed 04/08/2021 HEPATITIS B VACCINES Aged Out No long er eligible based on patient's age to complete this topic Procedures Procedure Name Priority Date/Time Associated Diagnosis Comments US ABDOMEN COMPLETE Routine 04/08/2021 Chronic idiopathic thrombocytopenic purpura (CMS/HCC) from Last 3 Months or Most Recently Relevant to Health Maintenance Results * US ABDOMEN COMPLETE (04/08/2021) Anatomical Region Laterality Modality Abdomen Other Huan Perez MD US ORDERABLES Final Result from Last 3 Months or Most Recently Relevant to Health Maintenance Insurance BLUE ACCESS/TRUE BLUE PPO Care Teams M48/M60 Tank Driver Relationship Specialty Start Date End Date Wilfrido Ryan MD [address] [facility] [address] [place] [address] PCP - General Family Practice 03/18/21
--- NOTE | 2024-11-21 14:33 | ECG_ITS ---
Test Date: 2024-11-21 14:47:38 Measurements Intervals [place] Rate: 71 P: 62 WV: 160 QRS: 64 QRSD: 93 T: 93 QT: 374 QTc: 406 Interpretive Statements SINUS RHYTHM DELAYED PRECORDIAL R/S TRANSITION CONSIDER INFERIOR INFARCT, AGE INDETERMINATE NONSPECIFIC ST & T-WAVE ABNORMALITY- HIGH LATERAL LEADS BASELINE ARTIFACT- I, II, III, AVR, AVL, AVF, V1-V6 ABNORMAL ECG Compared to ECG 06/25/2024 15:27:47 NO SIGNIFICANT CHANGE Electronically Signed On 11-21-2024 15:12:47 LEAD MECHANIC by Tom Mao D.O.
[2024-11-21 14:57] LABS: Basophils Percent Auto 0.4 % (0.2-1.2); Eosinophils Absolute Auto 0.1 K/mm3 (0-0.3); Eosinophils Percent Auto 1.2 % (0-4.4); Hematocrit 45.1 % (42.0-52.0); Hemoglobin 15.5 g/dL (14.0-18.0); Immature Granulocyte Absolute 0.03 K/mm3 (0.00-0.031); Immature Granulocyte Percent A 0.4 % (0-0.5); Immature Platelet Fraction Pct 17.3 % (0.9-11.2); Lymphocytes Absolute Auto 2.28 K/mm3 (0.9-3.2); Lymphocytes Percent Auto 30.5 % (18.3-44.2); Mean Corpuscular HGB Conc 34.4 g/dl (32-36); Mean Corpuscular Hemoglobin 32.3 pg (26-34); Mean Platelet Volume 13.8 fl (7.4-10.4); Monocytes Absolute Auto 0.6 K/mm3 (0.1-0.6); Monocytes Percent Auto 7.8 % (2.6-8.5); Neutrophils Absolute Auto 4.5 K/mm3 (1.3-6.7); Neutrophils Percent Auto 59.7 % (45.5-73.1); Platelet Count Result 62 k/mm3 (150-375); Red Cell Distribution Width 12.4 % (11.5-14.5); White Blood Count 7.5 K/mm3 (4.5-10.0)
[2024-11-21 15:07] LABS: Prothrombin Time 13.2 Seconds (11.1-14.7)
[2024-11-21 15:08] LABS: Partial Thromboplastin Time 25.3 Seconds (22.3-36.8)
[2024-11-21 15:10] LABS: Schistocytes None Seen
[2024-11-21 15:11] LABS: Platelet Estimate Decreased (Adequate)
[2024-11-21 15:19] LABS: Anion Gap 11 mmol/L (4-12); Blood Urea Nitrogen 15 mg/dL (9-20); Calcium 9.1 mg/dL (8.4-10.2); Carbon Dioxide 26 mmol/L (22-30); Chloride 101 mmol/L (98-107); Estimated Glomerular Filt Rate > 60; Glucose 216 mg/dL (65-110); Potassium 4.5 mmol/L (3.4-5.0); Sodium 138 mmol/L (137-145)
[2024-11-21 15:45] LABS: Carcinoembryonic Antigen 2.9 ng/mL (0.0-3.0)
== END 2024-11-21 11:36 | disposition home or self-care (01) ==
PROVIDERS: PCP Family Medicine; Visit Provider Surgery
DX: K63.5 Polyp of colon (principal)
CPT/HCPCS: 36415; 71046; 80048; 82378; 85025; 85055; 85610; 85730; 93005

== ENCOUNTER 2024-12-03 08:03 | Outpatient (CLI) | payer BC, SELFPAY ==
--- OUTSIDE RECORDS SUMMARY | 2024-12-03 08:20 | XMS_ITS | Clinical Summary ---
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 [facility] [address] [place] [address] Health Maintenance Due Date Last Done Comments DIABETES ANNUAL FOOT EXAM 1982 DIABETES ANNUAL [...] - Risk 60-74 years 1-dose series) 2024 Preventative Visit- Commercial 10/09/2024 Abdominal Aortic Aneurysm (A AA) Screening Completed [...] Insurance BLUE ACCESS/TRUE BLUE PPO Care Teams Windows Architect Relationship Specialty Start Date End Date Wilfrido Ryan MD [address] [address] PCP - General Family Practice 03/18/21
--- OUTSIDE RECORDS SUMMARY | 2024-12-03 08:21 | XMS_ITS | Encounter Summary ---
Author Organization [facility] Address [address] [place] [address] Care Team Providers Care Wildlife Control Agent Name Role Phone Unavailable Primary Care Provider Unavailabl e Encounter Details Date Type Department Care Team (Latest Contact Info) Description 08/14/2018 Abstract [facility] Medical Group , Meggan Bradley [...]
--- OUTSIDE RECORDS SUMMARY | 2024-12-03 08:21 | XMS_ITS | Clinical Summary ---
Author Organization [facility] Address [facility] [place] [address] Care Team Providers Care Electron Beam Photo Mask Maker Name Role Phone Unavailable Primary Care Provider [...] cm (5' 10 ) 08/24/2012 10:18 AM INSECTICIDE EXPERT Body Mass Index 31.14 08/24/2012 10:18 AM INSECTICIDE EXPERT Plan of Treatment Health Maintenance Due Date [...]
[2024-12-03 08:28] LABS: Immature Platelet Fraction Pct 15.9 % (0.9-11.2); Mean Platelet Volume 14.1 fl (7.4-10.4); Platelet Count Result 51 k/mm3 (150-375)
== END 2024-12-03 08:04 | disposition home or self-care (01) ==
PROVIDERS: Anesthesiology; PCP Family Medicine; Visit Provider Surgery
DX: D69.3 Immune thrombocytopenic purpura (principal); K63.5 Polyp of colon
CPT/HCPCS: 36415; 85049; 85055; 86850; 86900; 86901

== ENCOUNTER 2024-12-05 17:45 | Inpatient (IN) | payer BC, SELFPAY ==
--- NOTE | 2024-11-21 13:57 | PC.NURSE ---
Report to the Outpatient Waiting Room, entrance under the green pavilion located off [facility], at time __10 AM on date _12/05/24 . Planned Procedure Time: _1200 NOON .? Time changes happen often and if your time is changed the preop area will call you the afternoon before. - You and your visitor will be asked to self-screen and do not enter if you have any COVID symptoms. Please call surgeon if you need to reschedule. - A mask is optional within the hospital at this time. Patients may have clear liquids (water, carbonated beverages, clear teas, apple juice) until 3 hours prior to surgery( 9 AM) with a maximum of 20 ounces. - No food from midnight until time of surgery and no smoking, or chewing tobacco (or any form of nicotine). No chewing gum, candy or mints. ENSURE BUNDLE PACK PER DR ELI Take only the following medications with a SIP of water on the morning of surgery: ____METOPROLOL DO NOT STOP ANY OF YOUR OTHER PRESCRIPTION MEDICATIONS PRIOR TO SURGERY EXCEPT THE FOLLOWING Hold all vitamins and supplements for 3 days per anesthesiologist. LAST DOSE 12/01/24 MAY CONTINUE [address] ELI Medications to discontinue per physician ___ HIBICLENS DAY BEFORE SURGERY AND MORNING OF SURGERY Please no make-up, nail japanese, hairspray, perfume, deodorant, or body powder the day of surgery.? No jewelry (including any body piercings) or valuables the day of surgery, leave them at home.? Please take a shower or bath the night before, or the morning of, surgery with an antibacterial soap.? Wear comfortable, loose fitting clothing.? Children are encouraged to wear pajamas. - Jewelry must be removed prior to entering the operating room.? Rings and piercings that are not removed may be cut off. - The hospital will not accept responsibility for valuables.? - Please leave all valuables, including medications, at home the day of surgery. If you are going home after surgery, a licensed airport shuttle driver must drive you home.? - NO public transportation without another adult if you receive anesthesia. - We recommend that an adult stay with you for 24 hours following discharge. - We also recommend that you do not drive, make important decision, drink alcoholic beverages, or take any drugs that were not prescribed by your health care provider for at least 24 hours after your discharge time. Follow any additional instructions given to you from your surgeon. VERBAL AND WRITTEN instructions given to _PATIENT and asked if any additional questions and then verbalized understanding. Patient advised to call surgeon office or pre surgery nurse liaison [phone] if any additional questions.
[2024-11-21 14:44] VITALS: BP 127/76; PULSE 75; RESP 18; TEMP 36.7; O2SAT 100; BMI 28.5
--- NOTE | 2024-12-03 13:12 | PM.IMHP ---
H&P: HPI History of Present Illness Date/Time: 12/03/24 13:12 Chief Complaint: Ascending colon polyp Narrative: The patient is a 59-year-old gentleman who underwent screening colonoscopy on October 18 of this year. He was noted to have an ulcerated polyp in the proximal ascending colon. It was 2.5 cm in diameter. 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 Patient was seen in the office and plans were discussed to proceed with hand access laparoscopic right colectomy. Patient has had home bowel preparation and is to be taken to surgery at this time for right colectomy to be done laparoscopically. He has a significant history of coronary artery disease. He had coronary stents in 2011 and then coronary bypass grafting in 2015. In 2016 he had another coronary angiogram and stenting. Since that time he has had 2 additional coronary angiograms but has been treated medically. He saw his c developer on 11/05/2024 who felt the be him to be low risk for the laparoscopic colectomy surgery. Patient also has chronic ITP and platelet counts typically run 50-60,000. He has been asymptomatic and follows up annually with Dr. Perez for this. He also has diabetes hypertension and hyperlipidemia. These are also under chronic medical control. Review of Systems Review of Systems: All systems reviewed & are unremarkable except as noted in HPI and below (HPI) [facility] Past Medical History Medical History (Updated 12/03/24 @ 13:31 by Juice Hunt MD) Chronic ITP (idiopathic thrombocytopenia) Heart disease Heart attack Diabetes Coronary artery disease Long-term insulin use Surgical History Surgical History (Updated 12/03/24 @ 13:27 by Juice Hunt MD) S/P coronary artery stent placement S/P CABG (coronary artery bypass graft) Family History Family History Mother Patient's mother is in good health Father Family history of arthritis Hypertension Social History Social History Social History: Smoking packs per day: 1 Smoking cigarettes per day: 20.0 Years smoked: 35 Smoking pack-years: 35.00 Smoking status: Former smoker Tobacco type: cigarettes Second hand tobacco smoke exposure: No Smoking end date: 10/09/15 Alcohol intake: current Alcohol use details: ONE DRINK PER MONTH Substance use: never Substance use type: does not use Do You Feel Safe in your Home?: Yes Lack of Transportation: No Lack of Food: Never True Current Housing: I Have Housing Concerned About Future Housing: No Difficulty Paying Gas/Electric Bills: No Difficulty Paying for Meds: No Currently Unemployed: No Education: Associate Degree Difficulty w/ Childcare or Family Care: No Living arrangements: with family Occupation/Education: occupation Gender identity (if verbalized by the patient): Male Sexual Orientation (if Verbalized by the Patient): Straight or Heterosexual Spiritual care concerns: No Meds Home Medications and Allergies Home Medications ?Medication ?Instructions ?Recorded ?Confirmed ?Type aspirin 81 mg tablet,delayed 81 mg PO DAILY 11/06/19 11/21/24 History release isosorbide mononitrate 30 mg 30 mg PO DAILY 11/06/19 11/21/24 History tablet,extended release 24 hr metoprolol tartrate 50 mg tablet 50 mg PO Q12H 11/06/19 11/21/24 History ranolazine 1,000 mg 1,000 mg PO Q12H 11/06/19 11/21/24 History tablet,extended release,12 hr (Ranexa) rosuvastatin 40 mg tablet (Crestor) 40 mg PO QPM 11/06/19 11/21/24 History semaglutide 1 mg/dose (4 mg/3 mL) See Rx Instructions .Route 07/08/24 11/21/24 Rx subcutaneous pen injector (Ozempic) .COMPLEX #3 mL dapagliflozin propanediol 10 mg See Rx Instructions .Route 09/09/24 11/21/24 Rx tablet (Farxiga) .COMPLEX #30 tabs ciprofloxacin HCl 500 mg tablet See Rx Instructions .Route 11/05/24 11/21/24 Rx .COMPLEX #1 tablet metronidazole 500 mg tablet 500 mg .Route .COMPLEX #3 tabs 11/05/24 11/21/24 Rx arginine 1,000 mg-B12 16.6 1 tablet PO TID 11/21/24 11/21/24 History mcg-folic acid 66.6 mcg-B6 3.3 mg tablet (L-Arginine [employer]) cartilage 40 mg-collagen II 10 1 tablet PO DAILY 11/21/24 11/21/24 History mg-boron 5 mg-hyaluronate 3.3 mg tablet (Joint [employer]) metformin 500 mg tablet,extended 2,000 mg PO QPM 11/21/24 11/21/24 History release 24 hr multivitamin (Daily Multi-Vitamin 1 tablet PO DAILY 11/21/24 11/21/24 History tablet) Allergies Allergy/AdvReac Type Severity Reaction Status Date / Time No Known Allergies Allergy Verified 11/21/24 14:03 Exam Const: General: comfortable, no acute distress, alert and awake HENMT: Head: normocephalic and atraumatic Mouth: Yes Normal oral and palatal mucosa present Eyes: Conjunctivae: conjunctivae normal Pupils: Equal, round and reactive pupils present EOM: EOMs intact bilaterally Neck: Neck: normal visual inspection, no lymphadenopathy and nontender Chest: Chest palpation & inspection: abnormal inspection of the chest (Sternotomy scar) Resp: Effort & Inspection: normal respiratory effort Auscultation: clear to auscultation bilaterally Cardio: Rate: regular rate Rhythm: regular rhythm Heart sounds: no gallops, no murmurs and no rubs GI: Inspection: non-distended and scaphoid GI Palp: Yes Soft to palpation, No Tenderness to palpation present (GI), No Hepatomegaly present, No Splenomegaly present and No Palpable mass present Auscultation: normal bowel sounds Skin: Lesions: no lesions Rashes: no rashes Neuro: General: no focal motor deficits and CN's II-XI intact bilaterally Cranial nerves: Yes Equal, round and reactive pupils present, Yes Bilaterally intact EOM present, Yes facial symmetry and Yes Midline tongue present Speech: normal speech Motor exam (neuro): 5/5 motor strength present throughout and Motor abnormalities not present Extrem: General: no clubbing, cyanosis or edema and edema Psych: Affect: normal affect Thought process: Normal thought process present Insight: Good insight present (Psych) Assessment and Plan Assessment and plan (1) Polyp of ascending colon: Qualifiers: Colon polyp type: adenomatous Qualified Code(s): D12.2 - Benign neoplasm of ascending colon Code(s): K63.5 - Polyp of colon Status: Chronic Assessment and Plan: Plan to proceed with hand access laparoscopic right colectomy with ileotransverse anastomosis. This procedure, the risks, benefits, alternatives, have been discussed thoroughly with the patient. The usual length of the surgery and length of time in the hospital have been discussed. The usual length of the recovery has been discussed. The potential complications including possible anastomotic leakage have been discussed. It is also been discussed that although the biopsies of the polyp were be benign, the actual pathology after resection could still show invasive cancer. All questions were answered. He has been prepared for surgery with mechanical and antibiotic prep. He agrees to go ahead. (2) Chronic ITP (idiopathic thrombocytopenia): Code(s): D69.3 - Immune thrombocytopenic purpura Status: Chronic Assessment and Plan: Stable but with platelet counts in the 50-28174 range. (3) S/P CABG (coronary artery bypass graft): Code(s): Z95.1 - Presence of aortocoronary bypass graft Status: Chronic Assessment and Plan: This was done 13 years ago. He has had an additional stenting 12 years ago. (4) Coronary artery disease involving mechoopda coronary artery of mechoopda heart: Code(s): I25.10 - Atherosclerotic heart disease of mechoopda coronary artery without angina pectoris Status: Chronic Assessment and Plan: Patient evaluated by his c developer and felt to be low risk to proceed with the colon resection. (5) History of [place] (myocardial infarction): Code(s): I25.2 - Old myocardial infarction Status: Chronic (6) Hypertensive heart disease without congestive heart failure: Code(s): I11.9 - Hypertensive heart disease without heart failure Status: Chronic (7) Non-insulin dependent diabetes mellitus: Status: Chronic
[2024-12-05] VITALS (20 sets, daily range): BP systolic 95–158; BP diastolic 55–90; PULSE 72–90; RESP 12–18; TEMP 36.4–37; O2SAT 94–100; BMI 28.0
--- OUTSIDE RECORDS SUMMARY | 2024-12-05 02:53 | XMS_ITS | Clinical Summary ---
Author Organization [facility] Address [facility] [place] [address] Care Team Providers Care Hotel Associate Name Role Phone Unavailable Primary Care Provider [...] cm (5' 10 ) 08/24/2012 10:18 AM STOCK CLERK Body Mass Index 31.14 08/24/2012 10:18 AM STOCK CLERK Plan of Treatment Health Maintenance Due Date [...]
--- OUTSIDE RECORDS SUMMARY | 2024-12-05 02:53 | XMS_ITS | Clinical Summary ---
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
--- OUTSIDE RECORDS SUMMARY | 2024-12-05 02:53 | XMS_ITS | Encounter Summary ---
Author Organization [facility] Address [address] [place] [address] Care Team Providers Care Insurance Office Manager Name Role Phone Unavailable Primary Care Provider Unavailabl e Encounter Details Date Type Department Care Team (Latest Contact Info) Description 08/14/2018 Abstract [facility] Medical Group , Meggan Bradley [...]
[2024-12-05] MEDS: LACTATED RINGERS 1,000 ML 30 ML IV CONT ×2 (09:30→15:22)
[2024-12-05 09:44] LABS: Glucose Point of Care 140 mg/dl (65-105)
[2024-12-05] MEDS: ALVIMOPAN 12 MG CAPSULE PO (10:04)
[2024-12-05] MEDS: ACETAMINOPHEN 500 MG TABLET 1000 MG PO (10:04)
[2024-12-05] MEDS: KETOROLAC 15 MG/ML VIAL (*BKC) IV PUSH (10:05)
[2024-12-05 10:18] LABS: Immature Platelet Fraction Pct 17.7 % (0.9-11.2); Mean Platelet Volume 13.8 fl (7.4-10.4); Platelet Count Result 46 k/mm3 (150-375)
--- NOTE | 2024-12-05 11:20 | WPDANESEPPF ---
Anes - Initial Pre Proc Eval Procedure: Operation Date: 12/05/24 12:00 Proposed Procedures p Hand Assisted Laparoscopic Right Colectomy - Juice Hunt MD Date/Time: 12/05/24 11:20 Surgeon: Juice Hunt MD Pre Op Diagnosis: Ascending Colon Polyp Patient Data Age: 59 Gender: M Height: 1.78 m Weight: 88.6 kg Last Vital Signs Temp 36.7 C 12/05/24 10:17 Pulse 83 12/05/24 10:17 Resp 16 12/05/24 10:17 BP 116/69 12/05/24 10:17 Pulse Ox 99 12/05/24 10:17 O2 Del Method Room Air 12/05/24 10:17 Allergies Allergy/AdvReac Type Severity Reaction Status Date / Time No Known Allergies Allergy Verified 11/21/24 14:03 Home Medications ?Medication ?Instructions ?Recorded ?Confirmed ?Type aspirin 81 mg tablet,delayed 81 mg PO DAILY 11/06/19 12/05/24 History release isosorbide mononitrate 30 mg 30 mg PO DAILY 11/06/19 12/05/24 History tablet,extended release 24 hr metoprolol tartrate 50 mg tablet 50 mg PO Q12H 11/06/19 12/05/24 History ranolazine 1,000 mg 1,000 mg PO Q12H 11/06/19 11/21/24 History tablet,extended release,12 hr (Ranexa) rosuvastatin 40 mg tablet (Crestor) 40 mg PO QPM 11/06/19 12/05/24 History semaglutide 1 mg/dose (4 mg/3 mL) See Rx Instructions .Route 07/08/24 11/21/24 Rx subcutaneous pen injector (Ozempic) .COMPLEX #3 mL dapagliflozin propanediol 10 mg See Rx Instructions .Route 09/09/24 12/05/24 Rx tablet (Farxiga) .COMPLEX #30 tabs ciprofloxacin HCl 500 mg tablet See Rx Instructions .Route 11/05/24 11/21/24 Rx .COMPLEX #1 tablet metronidazole 500 mg tablet 500 mg .Route .COMPLEX #3 tabs 11/05/24 11/21/24 Rx arginine 1,000 mg-B12 16.6 1 tablet PO TID 11/21/24 12/05/24 History mcg-folic acid 66.6 mcg-B6 3.3 mg tablet (L-Arginine [employer]) cartilage 40 mg-collagen II 10 1 tablet PO DAILY 11/21/24 12/05/24 History mg-boron 5 mg-hyaluronate 3.3 mg tablet ([facility]) metformin 500 mg tablet,extended 2,000 mg PO QPM 11/21/24 11/21/24 History release 24 hr multivitamin (Daily Multi-Vitamin 1 tablet PO DAILY 11/21/24 12/05/24 History tablet) Laboratory Tests 12/05/24 12/05/24 09:25 09:38 Plt Count 46 L k/mm3 (150-375) MPV 13.8 H fl (7.4-10.4) % Immature Plt Fraction 17.7 H % (0.9-11.2) POC Capillary Glucose 140 H mg/dl (65-105) Blood Type A Positive Patient hx anesthesia problems: none Family hx anesthesia problems: none Results Review: All pre-operative results and documents have been reviewed as part of the pre-operative evaluation. [facility] Past Medical History Medical History (Updated 12/03/24 @ 13:31 by Juice Hunt MD) Chronic ITP (idiopathic thrombocytopenia) Heart disease Heart attack Diabetes Coronary artery disease Long-term insulin use Surgical History Surgical History (Updated 12/03/24 @ 13:31 by Juice Hunt MD) S/P coronary artery stent placement S/P CABG (coronary artery bypass graft) Family History Family History Mother Patient's mother is in good health Father Family history of arthritis Hypertension Social History Social History Social History: Smoking packs per day: 1 Smoking cigarettes per day: 20.0 Years smoked: 35 Smoking pack-years: 35.00 Smoking status: Former smoker Tobacco type: cigarettes Second hand tobacco smoke exposure: No Smoking end date: 06/25/16 Alcohol intake: never Alcohol use details: pt states that he drinks alcohol 3 times a month Substance use: never Substance use type: does not use Do You Feel Safe in your Home?: Yes Lack of Transportation: No Lack of Food: Never True Current Housing: I Have Housing Concerned About Future Housing: No Difficulty Paying Gas/Electric Bills: No Difficulty Paying for Meds: No Currently Unemployed: No Education: Associate Degree Difficulty w/ Childcare or Family Care: No Living arrangements: with family Occupation/Education: occupation Gender identity (if verbalized by the patient): Male Sexual Orientation (if Verbalized by the Patient): Straight or Heterosexual Spiritual care concerns: No Anes - Eval Final PreProcedure Day of Procedure 12/05/24 11:20 Patient weight: overweight Heart: regular rate and rhythm Lungs: clear to auscultation Airway: Mallampati scale class II Neurological: alert and oriented Last oral intake: >/= 8 hours ASA classification: III Emergent: no Anesthetic plan: proceed Anesthesia type and monitoring: general ETT and standard monitoring Results Review: All pre-operative results and documents have been reviewed as part of the pre-operative evaluation. Informed Consent: The patient's anesthetic plan and its attendant risks and benefits were discussed with the patient/family/POA. Questions were solicited and answers provided to the satisfaction of the patient/family/POA.
--- NOTE | 2024-12-05 11:26 | WPDHPUPDATE1 ---
History and Physical Update Update Date/Time: 12/05/24 11:26 History and Physical has been reviewed, including an updated exam of the patient. There are NO changes in the patient's condition. Platelet count this morning is 46,000. No signs of bleeding. Anesthesiologist has ordered platelet transfusion. Plan to proceed with surgery as discussed previously. I have discussed patient's ITP diagnosis and management of platelet count previously with anesthesiologist. Risks, benefits, and alternatives have been discussed and questions answered. Patient agrees to proceed with procedure.
[2024-12-05] MEDS: SODIUM CHLORIDE 0.9% IV 250 ML 30 ML IV CONT (11:45)
[2024-12-05] MEDS: ceFAZolin 2 GM/D5W 50 ML 2 GM/50 ML BAG IVPB (12:08)
[2024-12-05] MEDS: metroNIDAZOLE 500 MG/ISO 100ML 500 MG/100 ML BAG 100 MG IVPB (12:08)
[2024-12-05] MEDS: BUPIVACAINE/EPINEPHRINE 0.5% 10 ML VIAL 40 ML INFILTRATE (12:30)
[2024-12-05 15:21] LABS: Glucose Point of Care 154 mg/dl (65-105)
--- NOTE | 2024-12-05 15:52 | W.PM.PROC2 ---
Procedure Note - Detailed Date of Procedure 12/05/24 Pre-op Diagnosis Ascending Colon Polyp Post-op Diagnosis Same Procedure Performed Hand access laparoscopic right colectomy with hand-sewn ileotransverse anastomosis Surgeon Juice Hunt MD Hr Representative Petra Hurt [facility] Anesthesia General and Local Indications Patient underwent a routine screening colonoscopy in October. He has ITP and runs a chronically low platelet count. At colonoscopy, he was noted to have a sessile 2.5 cm polyp just beyond the ileocecal valve. 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 After discussion, patient was prepared for surgery and is taken to the operating room now for hand access laparoscopic right colectomy. Preoperative cardiology consultation was obtained and patient described as low risk for postop cardiac event. [place] [address] on the day of surgery and he was transfused 1 unit of platelets prior to surgery. Findings Patient had more bleeding and oozing than usual but had no hemodynamic instability and no significant bleeding. The polyp was palpable in the proximal ascending colon, there was no the palpable or visual evidence of malignancy. No other significant findings were noted. Description of Procedure Patient was taken to the operating room and induced into general anesthesia. The abdomen is prepped and draped. The midline hand access incision was drawn on the skin above the umbilicus. This was about an 8 cm incision. Local anesthetic was infiltrated into the skin, subcutaneous and eventually the midline fascia. Incision was made dissection was carried down through the subcutaneous. Once we encountered the fascia, additional local was infiltrated here. Fascia was opened and then the peritoneum was opened. Fascial and peritoneal opening were extended the length of the wound. There were no adhesions around the wound. The Dilip wound guard was placed. A GelPort was placed. With the hand in the right lower quadrant, additional local was infiltrated into the skin and abdominal wall. Incision was made and a 5 mm port was introduced. Insufflation was started through this port and the camera was positioned. This showed intraperitoneal location without evidence of injury. Under direct visualization, a left lower quadrant 5 mm port was also placed. Patient was placed in Trendelenburg with the right side slightly elevated. There was an omental adhesion in the pelvis which I took down with the LigaSure. The omentum and viscera were then swept into the upper abdomen. Traction was placed on the cecum and the appendix. Dissection with the LigaSure was started dividing the peritoneal attachments of the above structures and gaining access to the retroperitoneum. We were in an avascular plane and then proceeded to divide the mesentery of the distal ileum just beyond the ileocecal valve. In area of distal ileum was chosen and the LigaSure was then used to divide the mesentery from the retroperitoneal area toward the bowel. At some point during this dissection, bleeding occurred. It was very difficult to find the source of the bleeding as each time I elevated the bowel and mesentery, the bleeding stopped. I did use the LigaSure to cauterize a couple of areas areas on the mesenteric edge. I then dissected the mesentery over to the ileocolic artery. I dissected around the ileocolic artery using LigaSure. I then carefully divided the ileocolic artery and vein using the LigaSure. This division was hemostatic and actually the bleeding noted earlier had stopped as well. A couple of laparotomy sponges were used to remove the old blood. From there, we continued our retroperitoneal dissection of the ascending colon mesentery taking care to stay superficial to the right kidney and avoid the duodenum medially. Once the dissection was continued to the transverse mesocolon, we changed course and exposed the lateral peritoneal attachments of the ascending colon. These were then taken down using the LigaSure. At a couple different junctures there was bleeding even though the LigaSure had been applied thoroughly. The bleeding was not significant and was controlled with the LigaSure. As we approached the hepatic flexure, there were adhesions of the omentum to the liver. These were taken down with the LigaSure. The hepatocolic ligament was also divided mobilizing the hepatic flexure. The mesentery of the ascending colon was divided up to the transverse mesocolon and then the transverse colon mesentery was exposed and divided from right to left mobilizing the proximal transverse colon. At this point, we then used laparotomy sponges to remove any residual old blood and assess for any bloody oozing. Fortunately there was no sign of bleeding. I then stopped insufflation and removed the GelPort. We eviscerated the ascending colon and at least half of the transverse colon. I also eviscerated the distal ileum including the area of ileum that had the mesentery divided earlier. I then divided the distal ileum with a TLC 75 stapler. The end of the ileum was thoroughly checked to ensure that the mesentery was not twisted. I then used the LigaSure to divide some additional mesentery to the proximal transverse colon. I also divided the associated omentum to this portion of the proximal transverse colon. The TLC 75 stapler was then used to divide the proximal transverse colon. The ascending colon specimen was then passed off. It was sent to pathology in formalin. I again looked thoroughly at the transverse colon as well as at the distal ileum to ensure that there had been no twisting of the mesentery. The 2 ends of bowel were then laid [id number] for a [id number] but functional end-to-end anastomosis. Laparotomy sponges were placed under the ends of bowel. A noncrushing bowel clamp was placed proximally on the ileum. A posterior outer layer to the anastomosis was then created with interrupted 4-0 silk sutures. The distal small bowel and proximal transverse colon were then opened aside from each other. Colonic and enteric content were removed from each lumen. A posterior inner layer of bidirectional running 4-0 chromic locking suture was then placed. At each corner this suture was converted to a running inverting or Edith stitch. The anterior inner layer was completed in this fashion and the 2 ends of suture tied together. The anterior outer layer was then placed using interrupted 4-0 silk suture. This completed the 2 layer hand-sewn anastomosis. The anastomosis and associated bowel were then dropped back into the abdomen. The GelPort was replaced and a laparotomy sponge placed in the abdomen. We re-insufflated and then examined all areas of dissection and the anastomosis. All looked good with the bowel appearing to be very well vascularized and under no tension. There was no evidence of any twisting of the colon or small intestine. There was no sign of any bleeding. We then evacuated CO2 and removed the trocar sleeves. The GelPort and Dilip were removed. The surgical team changed gown and gloves and a clean closure tray was used. The midline wound was closed with bidirectional running 0 PDS suture. The subcutaneous was closed with interrupted 3-0 Vicryl suture. The skin was loosely approximated with subcuticular interrupted 4-0 Vicryl suture. The incision and the trocar sites were closed at the skin level with running 4-0 Monocryl skin suture. All the wounds were dressed with Exofin surgical adhesive. Patient was then awakened, extubated, and transferred to recovery in good condition. Sponge and needle counts were correct x2. Estimated Blood Loss -150 Drains No Packing No Pathology Yes (Ascending colon) Complications None Condition Stable Disposition PACU [facility] Billing Surgery - Charge Forward: Surgery Billing (Hand access right colectomy with hand-sewn ileotransverse anastomosis)
[2024-12-05] MEDS: fentaNYL CITRATE INJ (*CRX) 100 MCG/2 ML VIAL 25 MCG IV PUSH ×2 (17:36→17:38)
--- NOTE | 2024-12-05 17:58 | ADMGEN ---
This patient, Marvin Suero, was admitted to [address] [place] [address] Room 300-01. Patient/family oriented to hospital policies and general routines including ID bracelet, bed and alarms, visiting hours, pain management, procedures, bathroom and other care routines, personal items, smoking policy, room service/diet, and visiting hours. Information on how to activate the Rapid Response Team has been discussed. Patient/Family are encouraged to report perceived risks to care and to ask questions if they do not understand what they are told or what they should do.
[2024-12-05] MEDS: METOPROLOL TARTRATE 50 MG TAB PO (20:56)
[2024-12-05] MEDS: FAMOTIDINE 20 MG/2 ML VIAL IV PUSH (20:56)
[2024-12-05] MEDS: oxyCODONE/ACETAMINOPHEN (*CRX) 5-325 MG TABLET 1 TABLET PO (20:59)
[2024-12-05] MEDS: LACTATED RINGERS 1,000 ML 80 ML IV CONT (21:01)
[2024-12-05] MEDS: INSULIN ASPART (*BKC) 100 UNITS/ML SUB-Q (21:02)
[2024-12-05 21:07] LABS: Glucose Point of Care 251 mg/dl (65-105)
[2024-12-06] VITALS (7 sets, daily range): BP systolic 110–168; BP diastolic 67–89; PULSE 73–81; RESP 14–20; TEMP 36.5–37; O2SAT 81–98
[2024-12-06] MEDS: oxyCODONE/ACETAMINOPHEN (*CRX) 10-325 MG TABLET 1 TAB PO ×4 (03:18→21:40)
[2024-12-06] MEDS: LACTATED RINGERS 1,000 ML 80 ML IV CONT (05:58)
[2024-12-06 06:31] LABS: Hematocrit 37.6 % (42.0-52.0); Immature Platelet Fraction Pct 11.8 % (0.9-11.2); Mean Corpuscular HGB Conc 34.6 g/dl (32-36); Mean Corpuscular Hemoglobin 32.4 pg (26-34); Mean Corpuscular Volume 93.8 fl (80-100); Mean Platelet Volume 13.5 fl (7.4-10.4); Platelet Count Result 68 k/mm3 (150-375); Red Blood Count 4.01 M/mm3 (4.6-6.20); Red Cell Distribution Width 12.5 % (11.5-14.5)
[2024-12-06 06:39] LABS: Anion Gap 6 mmol/L (4-12); Blood Urea Nitrogen 13 mg/dL (9-20); Calcium 8.3 mg/dL (8.4-10.2); Carbon Dioxide 28 mmol/L (22-30); Chloride 107 mmol/L (98-107); Estimated CRCL calculation 85 ml/min; Estimated Glomerular Filt Rate > 60; Glucose 115 mg/dL (65-110); Potassium 3.8 mmol/L (3.4-5.0); Sodium 141 mmol/L (137-145)
[2024-12-06 07:51] LABS: Glucose Point of Care 116 mg/dl (65-105)
[2024-12-06] MEDS: FAMOTIDINE 20 MG/2 ML VIAL IV PUSH (09:01)
[2024-12-06] MEDS: ISOSORBIDE MONONITRATE 30 MG TAB.ER.24H PO (09:02)
[2024-12-06] MEDS: METOPROLOL TARTRATE 50 MG TAB PO ×2 (09:02→21:38)
--- NOTE | 2024-12-06 12:19 | P.PNGS_ITS ---
Progress Note: A&P Assessment and Plan (1) Polyp of ascending colon: Qualifiers: Colon polyp type: adenomatous Qualified Code(s): D12.2 - Benign neoplasm of ascending colon Code(s): K63.5 - Polyp of colon Status: Chronic Assessment and Plan: * Postop day 1 following BARB right colectomy. Patient is doing well. Postoperative pain well controlled with oral analgesics. Bowel function returning. Will advance to a low fiber diet. Encouraged being up in the chair and ambulating more today. Pathology pending. Patient could potentially discharge home in the next 1-2 days if he continues to improve. (2) Chronic ITP (idiopathic thrombocytopenia): Code(s): D69.3 - Immune thrombocytopenic purpura Status: Chronic Assessment and Plan: * Received 1 unit of platelets yesterday. Platelets stable today at 68,000. (3) S/P CABG (coronary artery bypass graft): Code(s): Z95.1 - Presence of aortocoronary bypass graft Status: Chronic (4) Coronary artery disease involving quechan coronary artery of quechan heart: Code(s): I25.10 - Atherosclerotic heart disease of quechan coronary artery without angina pectoris Status: Chronic (5) History of [place] (myocardial infarction): Code(s): I25.2 - Old myocardial infarction Status: Chronic (6) Hypertensive heart disease without congestive heart failure: Code(s): I11.9 - Hypertensive heart disease without heart failure Status: Chronic (7) Non-insulin dependent diabetes mellitus: Status: Chronic Plan I have discussed the patient's case and plan of care with Dr. Hunt. Subjective Subjective Date/Time Seen: 12/06/24 12:19 Post Op day: 1 (Hand access laparoscopic right colectomy with hand-sewn ileotransverse anastomosis) Patient reports: no new complaints, tolerating liquids well (no nausea or vomiting), voiding w/o difficulty, flatus, bowel movement and afebrile Interval history: Tolerating activity. Pain is well controlled. Reporting some RLQ tenderness and pain with movement. Reports liquid BM today. No blood in stool. Review of Systems Review of Systems: All systems reviewed & are unremarkable except as noted in HPI and below Exam Const: General: comfortable and no acute distress O rientation/consciousness: patient oriented x3 GI: Inspection: non-distended and incision (dry and healing well with no drainage or erythema) GI Palp: Yes Soft to palpation, Yes Tenderness to palpation present (GI) (RLQ tenderness), No Guarding due to palpation present (GI) and No Rebound tenderness present Auscultation: normal bowel sounds Objective Data Vital Signs Vital Signs: Vital Signs - 24 hr 12/05/24 15:14 12/05/24 15:25 12/05/24 15:40 Temperature 98.4 F Pulse Rate 72 72 85 Respiratory Rate 14 14 16 Blood Pressure 96/57 L 95/55 L 98/58 L Pulse Oximetry 99 99 96 Oxygen Delivery Simple Face Mask Simple Face Mask Room Air Oxygen Flow Rate 8 8 12/05/24 15:55 12/05/24 16:10 12/05/24 16:25 Temperature Pulse Rate 82 77 82 Respiratory Rate 18 14 16 Blood Pressure 106/68 107/69 126/75 Pulse Oximetry 94 94 95 Oxygen Delivery Room Air Room Air Room Air Oxygen Flow Rate 12/05/24 16:40 12/05/24 16:55 12/05/24 17:10 Temperature Pulse Rate 73 77 75 Respiratory Rate 12 18 14 Blood Pressure 123/75 134/79 132/78 Pulse Oximetry 95 96 95 Oxygen Delivery Room Air Room Air Room Air Oxygen Flow Rate 12/05/24 17:25 12/05/24 17:39 12/05/24 18:00 Temperature 97.6 F Pulse Rate 79 79 76 Respiratory Rate 12 12 16 Blood Pressure 158/90 H 143/84 H 126/77 Pulse Oximetry 96 96 95 Oxygen Delivery Room Air Room Air Oxygen Flow Rate 12/05/24 18:30 12/05/24 19:30 12/05/24 20:00 Temperature 97.8 F 98.3 F Pulse Rate 80 90 Respiratory Rate 15 16 Blood Pressure 150/86 H 149/81 H Pulse Oximetry 98 98 Oxygen Delivery Room Air Oxygen Flow Rate 12/05/24 20:56 12/05/24 23:30 12/06/24 03:30 Temperature 98.5 F 98.2 F Pulse Rate 80 86 74 Respiratory Rate 14 14 Blood Pressure 116/67 168/89 H Pulse Oximetry 96 98 Oxygen Delivery Oxygen Flow Rate 12/06/24 07:30 12/06/24 09:02 Temperature 97.7 F Pulse Rate 73 80 Respiratory Rate 20 Blood Pressure 157/81 H Pulse Oximetry 98 Oxygen Delivery Oxygen Flow Rate Intake/Output Intake/Output: Intake & Output 12/03/24 12/04/24 12/05/24 12/06/24 23:59 23:59 23:59 23:59 Intake Total 2567 1566 Output Total 1000 Balance 1567 1566 Meds/Results Medications: Active Medications Generic Name Dose Route Start Last Admin Trade Name Freq PRN Reason Stop Dose Admin Acetaminophen 500 mg 12/05/24 17:45 Acetaminophen 500 Mg Tablet PO Q6H PRN Pain Rated 1-3 Alvimopan 12 mg 12/06/24 21:00 Alvimopan 12 Mg Capsule PO 12/13/24 20:59 Q12HR VU Aspirin 81 mg 12/06/24 09:00 12/06/24 08:29 Aspirin 81 Mg Enteric Tablet PO Not Given DAILY VU Dextrose 12.5 gm 12/05/24 17:45 Dextrose 50% 25 Gm/50 Ml Syringe IV PUSH PRN PRN Hypoglycemia Protocol Enoxaparin Sodium 40 mg 12/06/24 09:00 12/06/24 07:10 Enoxaparin 40 Mg/0.4 Ml Syringe SUB-Q Not Given DAILY [facility] Glucagon 1 mg 12/05/24 17:45 Glucagon For Inj 1 Mg Vial IM PRN PRN Hypoglycemia Protocol Glucose 15 gm 12/05/24 17:45 Glucose Oral Gel 15 Gm Of Glucse In 37.5 Gm Tube PO PRN PRN Hypoglycemia Protocol Ibuprofen 800 mg in 200 mls @ 400 mls/hr 12/05/24 17:45 Caldolor 800 Mg/200 Ml IVPB Q6H PRN Breakthrough Pain Rated 1-3 or NPO Dextrose 1,000 mls @ 100 mls/hr 12/05/24 17:45 Dextrose 5% 1,000 Ml IVPB PRN PRN Hypoglycemia Protocol Insulin Aspart 3 - 6 units 12/05/24 17:45 12/06/24 08:21 Insulin Aspart (*Bkc) 100 Units/Ml SUB-Q Not Given TIDWM [facility] Protocol Insulin Aspart 1 - 3 units 12/05/24 21:00 12/05/24 21:02 Insulin Aspart (*Bkc) 100 Units/Ml SUB-Q 2 units HS VU Administration Protocol Isosorbide Mononitrate 30 mg 12/06/24 09:00 12/06/24 09:02 Isosorbide Mononitrate 30 Mg Tab.Er.24h PO 30 mg DAILY VU Administration Metformin HCl 2,000 mg 12/06/24 18:00 Metformin Hcl Xr 500 Mg Tab.Sr.24h PO QPM [facility] Metoprolol Tartrate 50 mg 12/05/24 21:00 12/06/24 09:02 Metoprolol Tartrate 50 Mg Tab PO 50 mg Q12HR VU Administration Morphine Sulfate 2 mg 12/05/24 17:45 Morphine Sulfate (*Crx) 2 Mg/Ml Inj IV PUSH Q2H PRN Breakthrough Pain Rated 4-6 or NPO Morphine Sulfate 4 mg 12/05/24 17:45 Morphine Sulfate (*Crx) 4 Mg/Ml Inj IV PUSH Q2H PRN Breakthrough Pain Rated 7-10 or NPO Naloxone HCl 0.1 mg 12/05/24 17:45 Naloxone Hcl 0.4 Mg/Ml Vial IV PUSH Q2M PRN Opiate Reversal Ondansetron HCl 4 mg 12/05/24 17:45 Ondansetron Inj 4 Mg/2 Ml Vial IV PUSH Q4H PRN Nausea And Vomiting Oxycodone/Acetaminophen 1 tablet 12/05/24 17:45 12/05/24 20:59 Oxycodone/Acetaminophen (*Crx) 5-325 Mg Tablet PO 1 tablet Q4H PRN Administration Pain Rated 4-6 Oxycodone/Acetaminophen 1 tab 12/05/24 17:45 12/06/24 09:05 Oxycodone/Acetaminophen (*Crx) 10-325 Mg Tablet PO 1 tab Q6H PRN Administration Pain Rated 7-10 Labs Labs: Laboratory Results - last 24 hr 12/05/24 12/05/24 12/06/24 15:18 20:51 05:35 WBC 10.0 RBC 4.01 L Hgb 13.0 L Hct 37.6 L MCV 93.8 MCH 32.4 MCHC 34.6 RDW 12.5 Plt Count 68 L MPV 13.5 H % Immature Plt Fraction 11.8 H Sodium 141 Potassium 3.8 Chloride 107 Carbon Dioxide 28 Anion Gap 6 BUN 13 Creatinine 0.83 Estim Creat Clear Calc 85 Estimated GFR > 60 Glucose 115 H POC Capillary Glucose 154 H 251 H Calcium 8.3 L 12/06/24 07:44 WBC RBC Hgb Hct MCV MCH MCHC RDW Plt Count MPV % Immature Plt Fraction Sodium Potassium Chloride Carbon Dioxide Anion Gap BUN Creatinine Estim Creat Clear Calc Estimated GFR Glucose POC Capillary Glucose 116 H Calcium
[2024-12-06 12:44] LABS: Glucose Point of Care 198 mg/dl (65-105)
--- NOTE | 2024-12-06 13:52 | P.CONIM_ITS ---
Assessment and Plan Assessment and plan (1) Hypertensive heart disease without congestive heart failure: Code(s): I11.9 - Hypertensive heart disease without heart failure Status: Chronic Assessment and Plan: asa, isosorbide, metoprolol (2) Chronic ITP (idiopathic thrombocytopenia): Code(s): D69.3 - Immune thrombocytopenic purpura Status: Chronic Assessment and Plan: platelets are stable no active bleeding -so will wait with tx pt refusing tx at this points- states steroids are increasing his bs will monitor for now in case of acute issues- willl readdress (3) Type 2 diabetes mellitus without complication, with long-term current use of insulin: Code(s): E11.9 - Type 2 diabetes mellitus without complications; Z79.4 - [facility] (current) use of insulin Status: Chronic Assessment and Plan: metformin -continue hold ozempic, farxiga HPI Date of Consult Consult date: 12/06/24 Requesting Physician: Juice Hunt MD Primary Care Provider: Wilfrido Ryan MD Consult Narrative Reason for consult: med mngmnt Narrative: Marvin Suero is a 59 year old male s/p Hand access laparoscopic right colectomy with hand-sewn ileotransverse anastomosis with DR Hunt. We were consulted. Pt reports chronic platelets which are stable. Pt has no active bleed. He refuses steroids -states taht they raise his BS to over 400's typically. He denies any other acute issues. Review of Systems 2 Review of Systems: All systems reviewed & are unremarkable except as noted in HPI and below PMFSH Past Medical History Medical History (Updated 12/03/24 @ 13:31 by Juice Hunt MD) Chronic ITP (idiopathic thrombocytopenia) Heart disease Heart attack Diabetes Coronary artery disease Long-term insulin use Surgical History Surgical History (Updated 12/03/24 @ 13:31 by Juice Hunt MD) S/P coronary artery stent placement S/P CABG (coronary artery bypass graft) Family History Family History Mother Patient's mother is in good health Father Family history of arthritis Hypertension Social History Social History Social History: Smoking packs per day: 1 Smoking cigarettes per day: 20.0 Years smoked: 35 Smoking pack-years: 35.00 Smoking status: Former smoker Second hand tobacco smoke exposure: No Alcohol intake: never Alcohol use details: pt states that he drinks alcohol 3 times a month Substance use: never Substance use type: does not use Do You Feel Safe in your Home?: Yes Lack of Transportation: No Lack of Food: Never True Current Housing: I Have Housing Concerned About Future Housing: No Difficulty Paying Gas/Electric Bills: No Difficulty Paying for Meds: No Currently Unemployed: No Education: Associate Degree Difficulty w/ Childcare or Family Care: No Living arrangements: with family Occupation/Education: occupation Gender identity (if verbalized by the patient): Male Sexual Orientation (if Verbalized by the Patient): Straight or Heterosexual Spiritual care concerns: No Meds Home Medications and Allergies Home Medications ?Medication ?Instructions ?Recorded ?Confirmed ?Type aspirin 81 mg tablet,delayed 81 mg PO DAILY 11/06/19 12/05/24 History release isosorbide mononitrate 30 mg 30 mg PO DAILY 11/06/19 12/05/24 History tablet,extended release 24 hr metoprolol tartrate 50 mg tablet 50 mg PO Q12H 11/06/19 12/05/24 History ranolazine 1,000 mg 1,000 mg PO Q12H 11/06/19 11/21/24 History tablet,extended release,12 hr (Ranexa) rosuvastatin 40 mg tablet (Crestor) 40 mg PO QPM 11/06/19 12/05/24 History semaglutide 1 mg/dose (4 mg/3 mL) See Rx Instructions .Route 07/08/24 11/21/24 Rx subcutaneous pen injector (Ozempic) .COMPLEX #3 mL dapagliflozin propanediol 10 mg See Rx Instructions .Route 09/09/24 12/05/24 Rx tablet (Farxiga) .COMPLEX #30 tabs ciprofloxacin HCl 500 mg tablet See Rx Instructions .Route 11/05/24 11/21/24 Rx .COMPLEX #1 tablet metronidazole 500 mg tablet 500 mg .Route .COMPLEX #3 tabs 11/05/24 11/21/24 Rx arginine 1,000 mg-B12 16.6 1 tablet PO TID 11/21/24 12/05/24 History mcg-folic acid 66.6 mcg-B6 3.3 mg tablet ([facility]) cartilage 40 mg-collagen II 10 1 tablet PO DAILY 11/21/24 12/05/24 History mg-boron 5 mg-hyaluronate 3.3 mg tablet ([employer]) metformin 500 mg tablet,extended 2,000 mg PO QPM 11/21/24 11/21/24 History release 24 hr multivitamin (Daily Multi-Vitamin 1 tablet PO DAILY 11/21/24 12/05/24 History tablet) Allergies Allergy/AdvReac Type Severity Reaction Status Date / Time No Known Allergies Allergy Verified 12/05/24 17:59 Vital Signs Vital Signs - 24 hr 12/05/24 15:14 12/05/24 15:25 12/05/24 15:40 Temperature 98.4 F Pulse Rate 72 72 85 Respiratory Rate 14 14 16 Blood Pressure 96/57 L 95/55 L 98/58 L Pulse Oximetry 99 99 96 Oxygen Delivery Simple Face Mask Simple Face Mask Room Air Oxygen Flow Rate 8 8 12/05/24 15:55 12/05/24 16:10 12/05/24 16:25 Temperature Pulse Rate 82 77 82 Respiratory Rate 18 14 16 Blood Pressure 106/68 107/69 126/75 Pulse Oximetry 94 94 95 Oxygen Delivery Room Air Room Air Room Air Oxygen Flow Rate 12/05/24 16:40 12/05/24 16:55 12/05/24 17:10 Temperature Pulse Rate 73 77 75 Respiratory Rate 12 18 14 Blood Pressure 123/75 134/79 132/78 Pulse Oximetry 95 96 95 Oxygen Delivery Room Air Room Air Room Air Oxygen Flow Rate 12/05/24 17:25 12/05/24 17:39 12/05/24 18:00 Temperature 97.6 F Pulse Rate 79 79 76 Respiratory Rate 12 12 16 Blood Pressure 158/90 H 143/84 H 126/77 Pulse Oximetry 96 96 95 Oxygen Delivery Room Air Room Air Oxygen Flow Rate 12/05/24 18:30 12/05/24 19:30 12/05/24 20:00 Temperature 97.8 F 98.3 F Pulse Rate 80 90 Respiratory Rate 15 16 Blood Pressure 150/86 H 149/81 H Pulse Oximetry 98 98 Oxygen Delivery Room Air Oxygen Flow Rate 12/05/24 20:56 12/05/24 23:30 12/06/24 03:30 Temperature 98.5 F 98.2 F Pulse Rate 80 86 74 Respiratory Rate 14 14 Blood Pressure 116/67 168/89 H Pulse Oximetry 96 98 Oxygen Delivery Oxygen Flow Rate 12/06/24 07:30 12/06/24 09:02 12/06/24 11:30 Temperature 97.7 F 97.9 F Pulse Rate 73 80 77 Respiratory Rate 20 18 Blood Pressure 157/81 H 113/71 Pulse Oximetry 98 96 Oxygen Delivery Oxygen Flow Rate Exam 2 Const: General: comfortable Eyes: General: appearance normal, both eyes and all related structures Neck: Neck: supple Resp: Effort & Inspection: normal respiratory effort Auscultation: clear to auscultation bilaterally Cardio: Rate: regular rate Rhythm: regular rhythm GI: GI Palp: Yes Soft to palpation Auscultation: normal bowel sounds Skin: General skin exam: normal color Neuro: Speech: normal speech Motor exam (neuro): 5/5 motor strength present throughout Extrem: General: normal to inspection Psych: Mental Status: mental status grossly normal Affect: normal affect Results Labs 12/06/24 05:35 12/06/24 05:35 Labs: Short CBC 12/06/24 Range/Units 05:35 WBC 10.0 (4.5-10.0) K/mm3 Hgb 13.0 L (14.0-18.0) g/dL Hct 37.6 L (42.0-52.0) % Plt Count 68 L (150-375) k/mm3 [facility] 12/06/24 05:35 Sodium 141 Potassium 3.8 Chloride 107 Carbon Dioxide 28 BUN 13 Creatinine 0.83 Glucose 115 H Calcium 8.3 L
[2024-12-06] MEDS: metFORMIN HCL XR 500 MG TAB.SR.24H 2000 MG PO (17:04)
[2024-12-06 17:11] LABS: Glucose Point of Care 170 mg/dl (65-105)
[2024-12-06] MEDS: SIMETHICONE 80 MG TAB.CHEW PO ×2 (18:14→21:44)
[2024-12-06] MEDS: ALVIMOPAN 12 MG CAPSULE PO (21:34)
[2024-12-06 21:41] LABS: Glucose Point of Care 144 mg/dl (65-105)
[2024-12-07] MEDS: oxyCODONE/ACETAMINOPHEN (*CRX) 5-325 MG TABLET 1 TABLET PO ×2 (04:49→14:05)
[2024-12-07] MEDS: SIMETHICONE 80 MG TAB.CHEW PO ×2 (04:50→08:57)
[2024-12-07 05:52] VITALS: BP 122/75; PULSE 78; RESP 18; TEMP 36.9; O2SAT 94
[2024-12-07 07:05] LABS: Hematocrit 36.7 % (42.0-52.0); Hemoglobin 12.2 g/dL (14.0-18.0); Immature Platelet Fraction Pct 11.5 % (0.9-11.2); Mean Corpuscular HGB Conc 33.2 g/dl (32-36); Mean Corpuscular Hemoglobin 32.3 pg (26-34); Mean Corpuscular Volume 97.1 fl (80-100); Mean Platelet Volume 13.3 fl (7.4-10.4); Platelet Count Result 74 k/mm3 (150-375); Red Blood Count 3.78 M/mm3 (4.6-6.20); Red Cell Distribution Width 13.1 % (11.5-14.5); White Blood Count 9.4 K/mm3 (4.5-10.0)
[2024-12-07 07:11] LABS: Anion Gap 12 mmol/L (4-12); Blood Urea Nitrogen 15 mg/dL (9-20); Calcium 8.6 mg/dL (8.4-10.2); Carbon Dioxide 23 mmol/L (22-30); Chloride 106 mmol/L (98-107); Estimated CRCL calculation 91 ml/min; Estimated Glomerular Filt Rate > 60; Glucose 151 mg/dL (65-110); Potassium 3.4 mmol/L (3.4-5.0); Sodium 141 mmol/L (137-145)
[2024-12-07 08:11] LABS: Glucose Point of Care 161 mg/dl (65-105)
[2024-12-07 08:41] VITALS: PULSE 104
[2024-12-07] MEDS: METOPROLOL TARTRATE 50 MG TAB PO (08:41)
[2024-12-07] MEDS: oxyCODONE/ACETAMINOPHEN (*CRX) 10-325 MG TABLET 1 TAB PO (08:41)
[2024-12-07] MEDS: ISOSORBIDE MONONITRATE 30 MG TAB.ER.24H PO (08:41)
[2024-12-07] MEDS: ASPIRIN 81 MG ENTERIC TABLET PO (08:41)
[2024-12-07] MEDS: ALVIMOPAN 12 MG CAPSULE PO (08:42)
--- NOTE | 2024-12-07 11:13 | P.CONIM_ITS ---
Assessment and Plan Assessment and plan (1) Hypertensive heart disease without congestive heart failure: Code(s): I11.9 - Hypertensive heart disease without heart failure Status: Chronic Assessment and Plan: asa, isosorbide, metoprolol (2) Chronic ITP (idiopathic thrombocytopenia): Code(s): D69.3 - Immune thrombocytopenic purpura Status: Chronic Assessment and Plan: platelets are stable-lightly improved today no active bleeding -so will wait with tx pt refusing tx at this points- states steroids are increasing his bs will monitor for now in case of acute issues- willl readdress (3) Type 2 diabetes mellitus without complication, with long-term current use of insulin: Code(s): E11.9 - Type 2 diabetes mellitus without complications; Z79.4 - nursing home (current) use of insulin Status: Chronic Assessment and Plan: metformin -continue hold ozempic, farxiga reviewed and stable HPI Date of Consult Consult date: 12/07/24 Requesting Physician: Juice Hunt MD Primary Care Provider: Wilfrido Ryan MD Consult Narrative Reason for consult: medical mngmnt Narrative: Marvin Suero is a 59 year old male s/p Hand access laparoscopic right colectomy with hand-sewn ileotransverse anastomosis with DR Hunt. Pt reports chronic platelets which are stable- improved today to 74. Pt has no active bleed. reports no acute issues overnight. pt is to be discharged per surgery. Review of Systems 2 Review of Systems: All systems reviewed & are unremarkable except as noted in HPI and below PMFSH Past Medical History Medical History (Updated 12/03/24 @ 13:31 by Juice Hunt MD) Chronic ITP (idiopathic thrombocytopenia) Heart disease Heart attack Diabetes Coronary artery disease Long-term insulin use Surgical History Surgical History (Updated 12/03/24 @ 13:31 by Juice Hunt MD) S/P coronary artery stent placement S/P CABG (coronary artery bypass graft) Family History Family History Mother Patient's mother is in good health Father Family history of arthritis Hypertension Social History Social History Social History: Smoking packs per day: 1 Smoking cigarettes per day: 20.0 Years smoked: 35 Smoking pack-years: 35.00 Smoking status: Former smoker Second hand tobacco smoke exposure: No Alcohol intake: never Alcohol use details: pt states that he drinks alcohol 3 times a month Substance use: never Substance use type: does not use Do You Feel Safe in your Home?: Yes Lack of Transportation: No Lack of Food: Never True Current Housing: I Have Housing Concerned About Future Housing: No Difficulty Paying Gas/Electric Bills: No Difficulty Paying for Meds: No Currently Unemployed: No Education: Associate Degree Difficulty w/ Childcare or Family Care: No Living arrangements: with family Occupation/Education: occupation Gender identity (if verbalized by the patient): Male Sexual Orientation (if Verbalized by the Patient): Straight or Heterosexual Spiritual care concerns: No Meds Home Medications and Allergies Home Medications ?Medication ?Instructions ?Recorded ?Confirmed ?Type aspirin 81 mg tablet,delayed 81 mg PO DAILY 11/06/19 12/05/24 History release isosorbide mononitrate 30 mg 30 mg PO DAILY 11/06/19 12/05/24 History tablet,extended release 24 hr metoprolol tartrate 50 mg tablet 50 mg PO Q12H 11/06/19 12/05/24 History ranolazine 1,000 mg 1,000 mg PO Q12H 11/06/19 11/21/24 History tablet,extended release,12 hr (Ranexa) rosuvastatin 40 mg tablet (Crestor) 40 mg PO QPM 11/06/19 12/05/24 History semaglutide 1 mg/dose (4 mg/3 mL) See Rx Instructions .Route 07/08/24 11/21/24 Rx subcutaneous pen injector (Ozempic) .COMPLEX #3 mL dapagliflozin propanediol 10 mg See Rx Instructions .Route 09/09/24 12/05/24 Rx tablet (Farxiga) .COMPLEX #30 tabs ciprofloxacin HCl 500 mg tablet See Rx Instructions .Route 11/05/24 11/21/24 Rx .COMPLEX #1 tablet metronidazole 500 mg tablet 500 mg .Route .COMPLEX #3 tabs 11/05/24 11/21/24 Rx arginine 1,000 mg-B12 16.6 1 tablet PO TID 11/21/24 12/05/24 History mcg-folic acid 66.6 mcg-B6 3.3 mg tablet ([employer]) cartilage 40 mg-collagen II 10 1 tablet PO DAILY 11/21/24 12/05/24 History mg-boron 5 mg-hyaluronate 3.3 mg tablet ([facility]) metformin 500 mg tablet,extended 2,000 mg PO QPM 11/21/24 11/21/24 History release 24 hr multivitamin (Daily Multi-Vitamin 1 tablet PO DAILY 11/21/24 12/05/24 History tablet) Allergies Allergy/AdvReac Type Severity Reaction Status Date / Time No Known Allergies Allergy Verified 12/05/24 17:59 Vital Signs Vital Signs - 24 hr 12/06/24 11:30 12/06/24 14:00 12/06/24 15:30 Temperature 97.9 F 98.1 F 97.9 F Pulse Rate 77 81 77 Respiratory Rate 18 20 18 Blood Pressure 113/71 115/67 113/71 Pulse Oximetry 96 81 L 96 Oxygen Delivery 12/06/24 21:44 12/07/24 05:52 12/07/24 08:41 Temperature 98.6 F 98.4 F Pulse Rate 76 78 104 H Respiratory Rate 16 18 Blood Pressure 110/76 122/75 Pulse Oximetry 96 94 Oxygen Delivery 12/07/24 08:45 Temperature Pulse Rate Respiratory Rate Blood Pressure Pulse Oximetry Oxygen Delivery Room Air Exam 2 Const: General: comfortable Eyes: General: appearance normal, both eyes and all related structures Neck: Neck: supple Resp: Effort & Inspection: normal respiratory effort Auscultation: clear to auscultation bilaterally Cardio: Rate: regular rate Rhythm: regular rhythm GI: Auscultation: normal bowel sounds Skin: General skin exam: normal color Neuro: Speech: normal speech Motor exam (neuro): 5/5 motor strength present throughout Extrem: General: normal to inspection Psych: Mental Status: mental status grossly normal Affect: normal affect Results Labs 12/07/24 05:49 12/07/24 05:49 Labs: Short CBC 12/07/24 Range/Units 05:49 WBC 9.4 (4.5-10.0) K/mm3 Hgb 12.2 L (14.0-18.0) g/dL Hct 36.7 L (42.0-52.0) % Plt Count 74 L (150-375) k/mm3 BMP 12/07/24 05:49 Sodium 141 Potassium 3.4 Chloride 106 Carbon Dioxide 23 BUN 15 Creatinine 0.77 Glucose 151 H Calcium 8.6
[2024-12-07 12:21] LABS: Glucose Point of Care 180 mg/dl (65-105)
--- NOTE | 2024-12-07 12:28 | P.DS_ITS ---
DS: Admitting Diagnosis Discharge Date 12/07/2024 Admitting Diagnosis * Ascending colon polyp * Coronary artery disease * ITP * Type 2 diabetes DS: Discharge Diagnosis Discharge Diagnosis (1) Polyp of ascending colon: Qualifiers: Colon polyp type: adenomatous Qualified Code(s): D12.2 - Benign neoplasm of ascending colon Code(s): K63.5 - Polyp of colon Status: Chronic (2) Non-insulin dependent diabetes mellitus: Status: Chronic (3) Chronic ITP (idiopathic thrombocytopenia): Code(s): D69.3 - Immune thrombocytopenic purpura Status: Chronic (4) S/P CABG (coronary artery bypass graft): Code(s): Z95.1 - Presence of aortocoronary bypass graft Status: Chronic (5) History of [place] (myocardial infarction): Code(s): I25.2 - Old myocardial infarction Status: Chronic DS: Summary Hospital Course Hospital Course: Patient underwent screening colonoscopy in October. He was found to have a sessile polyp in the proximal ascending colon. Biopsy showed tubulovillous adenoma. He was seen in my office and colon resection was discussed. He was prepared for surgery and taken to the operating room on 12/05/2024. Hand access laparoscopic right colectomy was performed. Hand-sewn ileotransverse anastomosis was created. Patient had about 150 cc intraoperative bleeding which is considerably more than usual. He has a history of ITP and [place] [address]. He received a unit of platelets just prior to surgery. Hospitalist service was consulted postoperatively for medical management. Postoperatively, patient tolerated liquids the day of surgery. He was advanced to a soft diet on postop day 1. And was ambulating. By postop day 2. He had had bowel movement and was comfortable on oral analgesics, ambulating independently. He was discharged in good condition on postoperative day 2. 12/07/2024. Status at Discharge Functional status at discharge: independent ambulation Overall status at discharge: patient is progressing back to baseline Time Spent with Patient Time attestation: Total time spent providing and/or coordinating discharge services: Time spent: Less than 30 minutes DS: Data Data Completed and Pending Pending studies at discharge: Pending at discharge 12/05/24 13:39 Surgical [PTH] Routine Labs on day of discharge: Labs from last 24 hours 12/07/24 12/07/24 12/07/24 12:10 07:55 05:49 WBC 9.4 RBC 3.78 L Hgb 12.2 L Hct 36.7 L MCV 97.1 MCH 32.3 MCHC 33.2 RDW 13.1 Plt Count 74 L MPV 13.3 H % Immature Plt Fraction 11.5 H Sodium 141 Potassium 3.4 Chloride 106 Carbon Dioxide 23 Anion Gap 12 BUN 15 Creatinine 0.77 Estim Creat Clear Calc 91 Estimated GFR > 60 Glucose 151 H POC Capillary Glucose 180 H 161 H Calcium 8.6 12/06/24 12/06/24 12/06/24 21:36 17:09 12:16 WBC RBC Hgb Hct MCV MCH MCHC RDW Plt Count MPV % Immature Plt Fraction Sodium Potassium Chloride Carbon Dioxide Anion Gap BUN Creatinine Estim Creat Clear Calc Estimated GFR Glucose POC Capillary Glucose 144 H 170 H 198 H Calcium Discharge Plan Discharge Attending physician on discharge: Juice Hunt Consulting providers: Catalina Mai Discharging Clinician: Juice Hunt Anticipated Discharge Date/Time: 12/07/24 12:34 Patient Disposition: Home, Self-Care Activity: may shower, no straining and as tolerated Diet: regular Wound Care Instructions: incision open to air Discharge Instructions: * Ambulate 3-4 x per day and as tolerated. * No lifting over 15-20lbs. * May bathe or shower. * Stairs are OK. * May drive a car in 3 days. Patient Instructions: Antibiotic Form Patient Language: Monegasque Stand Alone Forms: General Discharge Information Follow-up/Referrals: Juice Hunt MD [Physician] - 2 Weeks Discharge Medications: New oxycodone-acetaminophen [Percocet] 5-325 mg tablet 0.5 - 1 tablet PO Q4H PRN (Reason: pain) Qty: 10 0RF potassium chloride 20 mEq tablet extended release 20 meq PO DAILY Qty: 7 0RF Continued aspirin 81 mg tablet,delayed release (DR/EC) 81 mg PO DAILY rosuvastatin [Crestor] 40 mg tablet 40 mg PO QPM metoprolol tartrate 50 mg tablet 50 mg PO Q12H ranolazine [Ranexa] 1,000 mg tablet extended release 12 hr 1,000 mg PO Q12H isosorbide mononitrate 30 mg tablet extended release 24 hr 30 mg PO DAILY multivitamin [Daily Multi-Vitamin] Tablet 1 tablet PO DAILY [facility] 40-10-5-3.3 mg tablet 1 tablet PO DAILY L-[employer]ine [employer] 1,000 mg-16.6 mcg-66.6 mcg tablet 1 tablet PO TID metformin 500 mg tablet extended release 24 hr 2,000 mg PO QPM Ozempic 1 mg/dose (4 mg/3 mL) pen injector See Rx Instructions .ROUTE .COMPLEX Qty: 3 5RF Dose Instruction: 1 MG (0.75 ML) SUBCUTANEOUSLY WEEKLY Rx Instructions: 1 MG (0.75 ML) SUBCUTANEOUSLY WEEKLY, Farxiga 10 mg tablet See Rx Instructions .ROUTE .COMPLEX Qty: 30 5RF Dose Instruction: 10 MG ORALLY EVERY MORNING Rx Instructions: 10 MG ORALLY EVERY MORNING Discontinued ciprofloxacin HCl 500 mg tablet See Rx Instructions .ROUTE .COMPLEX Qty: 1 0RF Rx Instructions: Take 1 tablet by mouth at 2:00pm the day before surgery.; metronidazole 500 mg tablet 500 mg .ROUTE .COMPLEX Qty: 3 0RF Rx Instructions: 500 mg Take 1 tablet by mouth at 1:00pm, 2:00pm and 11:00pm the day before surgery.; Date of admission: 12/05/24 17:45 Primary Care Provider: Wilfrido Ryan Admitting Provider: Juice Hunt Attending physician on admission: Juice Hunt Condition: Improved
== END 2024-12-07 15:40 | disposition home or self-care (01) | DRG 330 ==
LOC: ANH3MEDSUR 17:48
PROVIDERS: Anesthesiology; Admitting Provider Surgery; PCP Family Medicine; Visit Provider Surgery
PROC: 0DTF4ZZ Resection of Right Large Intestine, Percutaneous Endoscopic Approach (ICD-10-PCS; CPT 44204; principal; 2024-12-05 12:00)
DX: D12.2 Benign neoplasm of ascending colon (principal); D69.3 Immune thrombocytopenic purpura; E11.9 Type 2 diabetes mellitus without complications; E78.5 Hyperlipidemia, unspecified; I25.10 Atherosclerotic heart disease of native coronary artery without angina pectoris; I10 Essential (primary) hypertension; I25.2 Old myocardial infarction; Z28.21 Immunization not carried out because of patient refusal; Z79.4 Long term (current) use of insulin; Z79.84 Long term (current) use of oral hypoglycemic drugs; Z79.85 Long-term (current) use of injectable non-insulin antidiabetic drugs; Z79.82 Long term (current) use of aspirin; Z95.5 Presence of coronary angioplasty implant and graft; Z95.1 Presence of aortocoronary bypass graft; Z87.891 Personal history of nicotine dependence
CPT/HCPCS: 36415; 36430; 80048; 82948; 85027; 85049; 85055; 86900; 86901; 88307; A9270; J0690; J1100; J1815; J1836; J1885; J2405; J2704; J3010; J7050; J7120; P9034

== ENCOUNTER 2025-07-16 03:04 | Day surgery (SDC) | payer BC, SELFPAY ==
[2025-07-08 13:09] VITALS: BMI 28.0
--- OUTSIDE RECORDS SUMMARY | 2025-07-16 03:07 | XMS_ITS | Clinical Summary ---
Author Organization [facility] Address [address] [address] Care Team Providers Care Emery Wheel Worker Name Role Phone Wilfrido Ryan MD Primary Care Provider [phone] Allergies Active Allergy Reactions Criticality Noted Date [...] day Active glucosam-chond- hyalu-CF borate ([employer]) 750 mg-100 mg- 1.65 mg-108 mg Tablet [...] Encounters Date Type Department Care Team Description 06/10/2025 External Device Data [facility] ABSTRACTION Provider, Abstract 06/10/2025 External Device Data [facility]CTION Provider, Abstract 05/27/2025 External Device Data [facility] Provider, Abstract 05/14/2025 External Device Data [facility] Provider, Abstract 05/13/2025 External Device Data [facility]CTION Provider, Abstract 04/23/2025 External Device Data [facility]STRACTION Provider, Abstract 04/23/2025 External Device Data [facility] Provider, Abstract 04/23/2025 External Device Data [facility]CTION Provider, Abstract 04/22/2025 External Device Data [facility] Provider, Abstract [...] 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 [address] [place] [address] Huan Perez MD [address] [facility] [facility] [address] [place] [address] Health Maintenance Due Date Last [...] 04/02/2013 ZOSTER VACCINE (1 of 2) 2014 RSV VACCINE (60+ or ) (1 - Risk 60-74 years 1-dose series) 2024 INFLUENZA VACCINE (#1) 2025 Abdominal Aortic Aneurysm (AAA) Screening Completed 04/08/2021 Procedures Procedure Name Priority Date/Time Associated Diagnosis Comments US ABDOMEN COMPLETE Routine 04/08/2021 Chronic idiopathic thrombocytopenic purpura (CMS/HCC) from Last 3 Months or Most Recently Relevant to Health Maintenance Results * US ABDOMEN COMPLETE (04/08/2021) Anatomical Region Laterality Modality Abdomen Ultrasound us Huan Perez MD US ORDERABLES Final Result from Last 3 Months or Most Recently Relevant to Health Maintenance Insurance [facility] BLUE ACCESS/TRUE BLUE PPO Care Teams Emery Wheel Worker Relationship Specialty Start Date End Date Wilfrido Ryan MD [address] [facility] [address] [place] [address] PCP - General Family Practice 03/18/21
--- OUTSIDE RECORDS SUMMARY | 2025-07-16 03:07 | XMS_ITS | Encounter Summary ---
Author Organization [facility] Address [address] [place] [id number] Care Team Providers Care Polymer Materials Consultant Name Role Phone Unavailable Primary Care Provider Unavailabl e Encounter Details Date Type Department Care Team (Latest Contact Info) Description 08/14/[address] [facility] , Meggan Bradley MD Social [...]
--- OUTSIDE RECORDS SUMMARY | 2025-07-16 03:07 | XMS_ITS | Clinical Summary ---
Author Organization [facility] Address [facility] [place] [address] Care Team Providers Care Fixed Capital Clerk Name Role Phone Unavailable Primary Care Provider [...] 9:19 AM CDT Height 177.8 cm (5' 10) 08/24/2012 10:18 AM DENTIST Body Mass Index 31.14 08/24/2012 10:18 AM DENTIST Plan of Treatment Health Maintenance Due Date Last Done Comments Colorectal Cancer Screening Colonoscopy (10 Years) 1964 Annual Physical 1967 Hepatitis C 1982 DTaP, Tdap and Td Vaccines ( 1 - Tdap) 1983 Pneumococcal Vaccine: 50+ Ye ars (1 of 1 - PCV) 2014 Zoster Vaccines (1 of 2) 2014 COVID-19 Vaccine ( - 2023-2 5 season) 2025 RSV Immunization or 60+ Years (1 - [...]
[2025-07-16 12:20] VITALS: BP 139/88; PULSE 86; RESP 20; TEMP 36.5; O2SAT 99; BMI 27.2
[2025-07-16] MEDS: LACTATED RINGERS 1,000 ML 150 ML IV CONT (12:38)
--- NOTE | 2025-07-16 12:38 | WPDANESEPPF ---
Anes - Initial Pre Proc Eval Procedure: Operation Date: 07/16/25 14:00 Proposed Procedures p Screening Colonoscopy - Nathaniel Clark MD Date/Time: 07/16/25 12:38 Surgeon: Nathaniel Clark MD Pre Op Diagnosis: Personal history of colon polyps, unspecified Patient Data Age: 60 Gender: M Height: 1.78 m Weight: 86.2 kg Last Vital Signs Temp 36.5 C 07/16/25 12:20 Pulse 86 07/16/25 12:20 Resp 20 07/16/25 12:20 BP 139/88 07/16/25 12:20 Pulse Ox 99 07/16/25 12:20 O2 Del Method Room Air 07/16/25 12:20 Allergies Allergy/AdvReac Type Severity Reaction Status Date / Time No Known Allergies Allergy Verified 07/16/25 12:17 Home Medications ?Medication ?Instructions ?Recorded ?Confirmed ?Type aspirin 81 mg tablet,delayed 81 mg PO DAILY 11/06/19 07/08/25 History release isosorbide mononitrate 30 mg 30 mg PO DAILY 11/06/19 07/16/25 History tablet,extended release 24 hr metoprolol tartrate 50 mg tablet 50 mg PO Q12H 11/06/19 07/08/25 History ranolazine 1,000 mg 1,000 mg PO Q12H 11/06/19 07/16/25 History tablet,extended release,12 hr (Ranexa) rosuvastatin 40 mg tablet (Crestor) 40 mg PO QPM 11/06/19 07/16/25 History arginine 1,000 mg-B12 16.6 1 tablet PO TID 11/21/24 07/16/25 History mcg-folic acid 66.6 mcg-B6 3.3 mg tablet (L-Arginine icixs Air Button) cartilage 40 mg-collagen II 10 1 tablet PO DAILY 11/21/24 07/16/25 History mg-boron 5 mg-hyaluronate 3.3 mg tablet ([facility]) multivitamin (Daily Multi-Vitamin 1 tablet PO DAILY 11/21/24 07/16/25 History tablet) dapagliflozin propanediol 10 mg See Rx Instructions .Route 03/14/25 07/16/25 Rx tablet (Farxiga) .COMPLEX #30 tabs metformin 500 mg tablet,extended See Rx Instructions .Route 06/09/25 07/16/25 Rx release 24 hr .COMPLEX #360 tabs semaglutide 1 mg/dose (4 mg/3 mL) See Rx Instructions .Route 07/07/25 07/16/25 Rx subcutaneous pen injector (Ozempic) .COMPLEX #9 mL Patient hx anesthesia problems: none Family hx anesthesia problems: none Results Review: All pre-operative results and documents have been reviewed as part of the pre-operative evaluation. [facility] Past Medical History Medical History Chronic ITP (idiopathic thrombocytopenia) Heart disease Heart attack Diabetes Coronary artery disease Long-term insulin use Surgical History Surgical History H/O colectomy 12/05/24 Hand access laparoscopic right colectomy with hand-sewn ileotransverse anastomosis Dr. Hunt S/P coronary artery stent placement S/P CABG (coronary artery bypass graft) Family History Family History Mother Patient's mother is in good health Father Family history of arthritis Hypertension Social History Social History Social History: Smoking packs per day: 1 Smoking cigarettes per day: 20.0 Years smoked: 35 Smoking pack-years: 35.00 Smoking status: Former smoker Tobacco type: cigarettes Second hand tobacco smoke exposure: No Alcohol intake: current Alcohol use details: socially, rare Substance use: never Substance use type: does not use Do You Feel Safe in your Home?: Yes Lack of Transportation: No Lack of Food: Never True Current Housing: I Have Housing Concerned About Future Housing: No Difficulty Paying Gas/Electric Bills: No Difficulty Paying for Meds: No Currently Unemployed: No Education: Associate Degree Difficulty w/ Childcare or Family Care: No Living arrangements: with family Occupation/Education: occupation Gender identity (if verbalized by the patient): Male Sexual Orientation (if Verbalized by the Patient): Straight or Heterosexual Spiritual care concerns: No Anes - Eval Final PreProcedure Day of Procedure 07/16/25 12:38 Patient weight: overweight Heart: regular rate and rhythm Lungs: clear to auscultation Airway: Mallampati scale class II Neurological: alert and oriented Last oral intake: >/= 8 hours ASA classification: III Emergent: no Anesthetic plan: proceed Anesthesia type and monitoring: general GIVS and standard monitoring Results Review: All pre-operative results and documents have been reviewed as part of the pre-operative evaluation. Informed Consent: The patient's anesthetic plan and its attendant risks and benefits were discussed with the patient/family/POA. Questions were solicited and answers provided to the satisfaction of the patient/family/POA.
--- NOTE | 2025-07-16 12:48 | PM.IMHP ---
H&P: HPI History of Present Illness Date/Time: 07/16/25 12:48 Chief Complaint: History of colon polyp Narrative: The patient has a history of colonic polyps, the last colonoscopy was in November this year, finding large tubulovillous adenoma in the right colon. Patient underwent colonic resection. He is here today for colonoscopy. Review of Systems Review of Systems: All systems reviewed & are unremarkable except as noted in HPI and below PMFSH Past Medical History Medical History Chronic ITP (idiopathic thrombocytopenia) Heart disease Heart attack Diabetes Coronary artery disease Long-term insulin use Surgical History Surgical History H/O colectomy 12/05/24 Hand access laparoscopic right colectomy with hand-sewn ileotransverse anastomosis Dr. Hunt S/P coronary artery stent placement S/P CABG (coronary artery bypass graft) Family History Family History Mother Patient's mother is in good health Father Family history of arthritis Hypertension Social History Social History Social History: Smoking packs per day: 1 Smoking cigarettes per day: 20.0 Years smoked: 35 Smoking pack-years: 35.00 Smoking status: Former smoker Tobacco type: cigarettes Second hand tobacco smoke exposure: No Alcohol intake: current Alcohol use details: socially, rare Substance use: never Substance use type: does not use Do You Feel Safe in your Home?: Yes Lack of Transportation: No Lack of Food: Never True Current Housing: I Have Housing Concerned About Future Housing: No Difficulty Paying Gas/Electric Bills: No Difficulty Paying for Meds: No Currently Unemployed: No Education: Associate Degree Difficulty w/ Childcare or Family Care: No Living arrangements: with family Occupation/Education: occupation Gender identity (if verbalized by the patient): Male Sexual Orientation (if Verbalized by the Patient): Straight or Heterosexual Spiritual care concerns: No Meds Home Medications and Allergies Home Medications ?Medication ?Instructions ?Recorded ?Confirmed ?Type aspirin 81 mg tablet,delayed 81 mg PO DAILY 11/06/19 07/08/25 History release isosorbide mononitrate 30 mg 30 mg PO DAILY 11/06/19 07/16/25 History tablet,extended release 24 hr metoprolol tartrate 50 mg tablet 50 mg PO Q12H 11/06/19 07/08/25 History ranolazine 1,000 mg 1,000 mg PO Q12H 11/06/19 07/16/25 History tablet,extended release,12 hr (Ranexa) rosuvastatin 40 mg tablet (Crestor) 40 mg PO QPM 11/06/19 07/16/25 History arginine 1,000 mg-B12 16.6 1 tablet PO TID 11/21/24 07/16/25 History mcg-folic acid 66.6 mcg-B6 3.3 mg tablet (L-Arginine [employer]) cartilage 40 mg-collagen II 10 1 tablet PO DAILY 11/21/24 07/16/25 History mg-boron 5 mg-hyaluronate 3.3 mg tablet (Sonavation) multivitamin (Daily Multi-Vitamin 1 tablet PO DAILY 11/21/24 07/16/25 History tablet) dapagliflozin propanediol 10 mg See Rx Instructions .Route 03/14/25 07/16/25 Rx tablet (Farxiga) .COMPLEX #30 tabs metformin 500 mg tablet,extended See Rx Instructions .Route 06/09/25 07/16/25 Rx release 24 hr .COMPLEX #360 tabs semaglutide 1 mg/dose (4 mg/3 mL) See Rx Instructions .Route 07/07/25 07/16/25 Rx subcutaneous pen injector (Ozempic) .COMPLEX #9 mL Allergies Allergy/AdvReac Type Severity Reaction Status Date / Time No Known Allergies Allergy Verified 07/16/25 12:17 Vital Signs Vital Signs - 24 hr 07/16/25 12:20 Temperature 97.7 F Pulse Rate 86 Respiratory Rate 20 Blood Pressure 139/88 Pulse Oximetry 99 Oxygen Delivery Room Air Exam Const: General: cooperative and healthy appearing Resp: Effort & Inspection: normal respiratory effort and able to speak in complete sentences Auscultation: clear to auscultation bilaterally Cardio: Rate: regular rate Rhythm: regular rhythm GI: Inspection: normal to inspection GI Palp: No No hepatosplenomegaly present Auscultation: normal bowel sounds Rectal Exam: deferred Skin: General skin exam: normal color Psych: Appearance: grossly normal Mental Status: mental status grossly normal Assessment and Plan Assessment and plan (1) Polyp of ascending colon: Qualifiers: Colon polyp type: adenomatous Qualified Code(s): D12.2 - Benign neoplasm of ascending colon Code(s): K63.5 - Polyp of colon Status: Chronic Assessment and Plan: The patient is deemed a good candidate for the procedure. Consent signed. Will proceed.
[2025-07-16 13:08] VITALS: BP 125/73; PULSE 82; RESP 22; O2SAT 95
[2025-07-16 13:18] VITALS: BP 118/73; PULSE 82; RESP 18; O2SAT 97
[2025-07-16 13:28] VITALS: BP 118/73; PULSE 80; RESP 18; O2SAT 97
== END 2025-07-16 13:56 | disposition home or self-care (01) ==
PROVIDERS: PCP Family Medicine; Referring Provider Internal Medicine Gastroenterology; Visit Provider Internal Medicine Gastroenterology
PROC: 0DJD8ZZ Inspection of Lower Intestinal Tract, Via Natural or Artificial Opening Endoscopic (ICD-10-PCS; CPT 45378; principal; 2025-07-16 14:00)
DX: Z09 Encounter for follow-up examination after completed treatment for conditions other than malignant neoplasm (principal); K57.30 Diverticulosis of large intestine without perforation or abscess without bleeding; E11.9 Type 2 diabetes mellitus without complications; I25.10 Atherosclerotic heart disease of native coronary artery without angina pectoris; D69.3 Immune thrombocytopenic purpura; I51.9 Heart disease, unspecified; I25.2 Old myocardial infarction; Z79.4 Long term (current) use of insulin; Z79.82 Long term (current) use of aspirin; Z79.84 Long term (current) use of oral hypoglycemic drugs; Z79.85 Long-term (current) use of injectable non-insulin antidiabetic drugs; Z98.0 Intestinal bypass and anastomosis status; Z90.49 Acquired absence of other specified parts of digestive tract; Z95.5 Presence of coronary angioplasty implant and graft; Z95.1 Presence of aortocoronary bypass graft; Z86.0100 Personal history of colon polyps, unspecified; Z87.891 Personal history of nicotine dependence
CPT/HCPCS: 45378; 82948; J2704; J7120

== ENCOUNTER 2025-07-31 08:05 | Outpatient (CLI) | payer BC, SELFPAY ==
--- OUTSIDE RECORDS SUMMARY | 2025-07-31 08:13 | XMS_ITS | Clinical Summary ---
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
--- OUTSIDE RECORDS SUMMARY | 2025-07-31 08:13 | XMS_ITS | Clinical Summary ---
Author Organization 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 Oncology and Hematology - [facility] [address] [place] [address] Huan Perez MD [address] [place] [address] Health Maintenance Due Date Last [...] DIABETES HBA1C Q 6 MONTHS 10/02/2013 04/02/2013 RSV VACCINE (60+ or ) (1 - Risk 50-74 years 1-dose series) 2014 ZOSTER VACCINE (1 of 2) 2014 INFLUENZA VACCINE (#1) 2025 Abdominal Aortic Aneurysm (AAA) Screening Completed 04/08/2021 Procedures Procedure Name Priority Date/Time Associated Diagnosis Comments US ABDOMEN COMPLETE Routine 04/08/2021 Chronic idiopathic thrombocytopenic purpura (CMS/HCC) from Last 3 Months or Most Recently Relevant to Health Maintenance Results * US ABDOMEN COMPLETE (04/08/2021) Anatomical Region Laterality Modality Abdomen Ultrasound Huan Perez MD US ORDERABLES Final Result from Last 3 Months or Most Recently Relevant to Health Maintenance Insurance BLUE ACCESS/TRUE BLUE PPO Care Teams Sewing Machines Salesperson Relationship Specialty Start Date End Date Wilfrido Ryan MD [address] [facility] [[email or web address] [address] [place] [address] PCP - General Family Practice 03/18/21
--- OUTSIDE RECORDS SUMMARY | 2025-07-31 08:14 | XMS_ITS | Encounter Summary ---
Author Organization [facility] Address [address] [place] [id number] Care Team Providers Care Circular Distributor Name Role Phone Unavailable Primary Care Provider Unavailabl e Encounter Details Date Type Department Care Team (Latest Contact Info) Description 08/14/2018 Abstract [facility] , Meggan Bradley MD Social [...]
[2025-07-31 08:32] LABS: Hematocrit 46.5 % (42.0-52.0); Hemoglobin 15.8 g/dL (14.0-18.0); Immature Granulocyte Percent A 0.3 % (0-0.5); Immature Platelet Fraction Pct 17.2 % (0.9-11.2); Lymphocytes Absolute Auto 1.96 K/mm3 (0.9-3.2); Mean Corpuscular HGB Conc 34.0 g/dl (32-36); Mean Corpuscular Hemoglobin 31.3 pg (26-34); Mean Corpuscular Volume 92.3 fl (80-100); Nucleated Red Blood Cells Absolute Auto 0.000 K/mm3 (0.0-0.012); Nucleated Red Blood Cells Perc 0.0 % (0.0-0.2); Platelet Count Result 51 k/mm3 (150-375); Red Blood Count 5.04 M/mm3 (4.6-6.20); White Blood Count 6.4 K/mm3 (4.5-10.0)
[2025-07-31 10:00] LABS: Anion Gap 10 mmol/L (4-12); Blood Urea Nitrogen 13 mg/dL (9-20); Calcium 8.9 mg/dL (8.4-10.2); Carbon Dioxide 24 mmol/L (22-30); Chloride 104 mmol/L (98-107); Estimated Glomerular Filt Rate > 60; Glucose 143 mg/dL (65-110); Potassium 4.6 mmol/L (3.4-5.0); Sodium 138 mmol/L (137-145)
== END 2025-07-31 08:06 | disposition home or self-care (01) ==
LOC: ANHLAB 08:06
PROVIDERS: PCP Family Medicine; Visit Provider Internal Medicine Hematology & Oncology
DX: D69.3 Immune thrombocytopenic purpura (principal)
CPT/HCPCS: 36415; 80048; 85025; 85055